=== PATIENT | female | born 1975 | race Caucasian/White ===

== ENCOUNTER 2019-06-22 15:09 | Outpatient (CLI) | payer OTHER, SELFPAY ==
--- NOTE | ~2019-06-22 | XR_ITS ---
EXAMINATION: XR lumbar spine 2-3V EXAM DATE: 06/22/2019 15:36 INDICATION: No known recent injury provided at this time. Pain of the low back. Radiculopathy. TECHNIQUE: Lumber spine frontal, lateral, lateral L5-S1 projections for interpretation. There is no prior study for comparison. FINDINGS: The vertebral bodies are aligned in the AP dimension. Vertebral body and disc heights are well-maintained. No spondylolysis. Mild lower lumbar facet arthropathy. Paraspinal soft tissue is un remarkable. IMPRESSION: Mild lumbar facet arthropathy. Reviewed, dictated and finalized at location B. ENER PERFUMER
--- NOTE | ~2019-06-22 | XR_ITS ---
EXAMINATION: XR shoulder RT min 2V EXAM DATE: 06/22/2019 15:36 INDICATION: No known recent injury provided at this time. Pain of the right shoulder TECHNIQUE: The following right shoulder projections obtained: frontal projection with internal rotati on, frontal projection with external rotation, Grashey, and scapular Y view (4+ views). There is no prior study for comparison. FINDINGS: No evidence of right shoulder rotator cuff calcific tendinosis. Unremarkable right tan ohumeral and acromioclavicular joints. There are no acute fractures or dislocations identified. Ther e is no subcutaneous gas. The soft tissue is unremarkable. There are no radiopaque foreign bodies. IMPRESSION: 1. Unremarkable XR shoulder RT min 2V exam. Reviewed, dictated and finalized at location B. S INTERPRETER
== END 2019-06-22 15:10 | disposition home or self-care (01) ==
LOC: ANHIMG 15:14
PROVIDERS: PCP Physician Assistant; Visit Provider Nurse Practitioner Adult Health
DX: M25.511 Pain in right shoulder (principal); M47.26 Other spondylosis with radiculopathy, lumbar region
CPT/HCPCS: 72100; 73030

== ENCOUNTER 2019-08-13 18:10 | Emergency (ER) | payer OTHER, SELFPAY ==
--- NOTE | ~2019-08-13 | XR_ITS ---
EXAMINATION: XR chest 2V 08/13/2019 18:40 INDICATION: Sudden onset of right upper chest pain PROCEDURE: 2 view chest COMPARISON: 08/20/2018 FINDINGS: The lungs are clear. The cardiomediastinal silhouette is within normal limits. There are no pleural effusions. There is no pneumothorax suspected. IMPRESSION: 1: NO ACUTE CARDIOPULMONARY DISEASE. Reviewed, dictated and finalized at location A.
[2019-08-13 18:10] VITALS: BP 133/82; PULSE 92; RESP 24; TEMP 36.6; O2SAT 98
[2019-08-13 18:15] VITALS: PULSE 75
--- NOTE | 2019-08-13 18:20 | ED.CHESTPAIN ---
HPI - Chest Pain General Chief Complaint: Chest Pain Stated Complaint: chest pain Time Seen by Provider: 08/13/19 18:20 Source: patient Mode of arrival: ambulatory Limitations: no limitations History of Present Illness HPI narrative: 44-year-old woman comes in today complaining of right-sided chest pain which is worse with movement and taking a deep breath. Patient states that started on her waking this morning. She denies any recent falls or injuries. She has never had chest pain like this before. She denies fever, nausea, vomiting, cough, sputum production, cold symptoms, abdominal pain, dysuria or vomiting. MD complaint: chest pain Onset (ago): hour(s) (-12) Timing of current episode: episodic and still present Prior episodes: No Onset: during rest Pain location: right chest ( Anterior) Pain radiation: none Severity: severe Quality: sharp Relieving factors: nothing Exacerbating factors: inspiration, palpation and movement Treatment prior to arrival: none Risk Factors Coronary artery disease risk factors: smoking history and hyperlipidemia Related Data Home Medications Medication Instructions Recorded Confirmed pravastatin 20 mg PO DAILY 08/13/19 08/13/19 pregabalin 150 mg PO DAILY 08/13/19 08/13/19 trazodone 50 mg PO HS 08/13/19 08/13/19 Allergies Allergy/AdvReac Type Severity Reaction Status Date / Time morphine Allergy Unknown Verified 01/22/10 12:39 Penicillins Allergy Unknown Verified 08/20/18 12:17 tramadol Allergy Unknown Verified 08/20/18 12:17 Review of Systems Constitutional: Constitutional: Denies chills, Denies fatigue, Denies fever(s) and Denies weakness Eyes: Eyes: Denies change in vision and Denies photophobia ENT: Denies dysphagia, Denies nasal congestion and Denies sore throat Cardiovascular: Cardiovascular: Reports chest pain, Denies rapid heart rate and Denies radiating jaw, neck or arm pain Respiratory: Respiratory: Denies chest congestion, Denies cough, Denies dyspnea and Denies wheezing Gastrointestinal: Gastrointestinal: Denies abdominal pain, Denies diarrhea, Denies nausea and Denies vomiting Genitourinary: Genitourinary: Denies nocturia and Denies dysuria Musculoskeletal: Musculoskeletal: Denies back pain and Denies joint swelling Integumentary/Breasts: Skin/Breast: Denies pruritus, Denies erythema and Denies rash Neurologic: Denies vertigo, Denies syncope and Denies focal weakness Psychiatric: Psychiatric: Denies anxiety and Denies depression Endocrine: Endocrine: Denies excessive sweating and Denies polyuria Hematologic/Lymphatic: Hematologic/Lymphatic: Denies easy bleeding and Denies easy bruising Allergic/Immunologic: Allergic/Immunologic: Denies throat swelling, Denies tongue swelling and Denies wheezing PMFSH Past Medical History Medical History (Updated 08/13/19 @ 19:36 by Jasper Monsivais MD) Depression Dyslipidemia Surgical History Surgical History (Updated 08/13/19 @ 18:32 by Jasper Monsivais MD) H/O partial thyroidectomy H/O: hysterectomy History of ankle surgery Family History Family History (Updated 01/03/14 @ 07:13 by DOCTOR UNKNOWN) Mother Family history of thyroid disease Other Cerebrovascular accident Diabetes mellitus Family history of allergic disorder Family history of arthritis Family history of malignant neoplasm Family history of mental disorder Hypertension Social History Social History (Updated 08/13/19 @ 18:31 by Jasper Monsivais MD) Smoking status: Current every day smoker Alcohol intake: never Substance use: never Living arrangements: with family Exam Const: General: healthy appearing and alert Orientation/consciousness: patient oriented x3 Other: moderate acute distress. HENMT: Head: normal to inspection Ears: external ears normal, EAC's normal and TM abnormal Mouth: Yes Normal oral and palatal mucosa present and Yes moist mucous membranes Throat: uvula midline Eyes: Con
--- NOTE | 2019-08-13 18:25 | ECG_ITS ---
Measurements Intervals [place] Rate: 76 P: 70 TN: 138 QRS: 83 QRSD: 91 T: 38 QT: 396 QTc: 448 Interpretive Statements SINUS RHYTHM BASELINE ARTIFACT- II, III, AVR, AVL, AVF NORMAL ECG Electronically Signed On 08-13-2019 19:15:12 CDT by Lorenzo Major D.O.
--- NOTE | 2019-08-13 18:30 | PC.NURSE ---
PT TAKEN TO RADIOLOGY DEPARTMENT BY WHEELCHAIR AT THIS TIME
[2019-08-13 18:46] LABS: Basophils Absolute Auto 0.05 K/mm3 (0.00-0.10); Basophils Percent Auto 0.5 % (0.0-1.0); Eosinophils Absolute Auto 0.09 K/mm3 (0.02-0.50); Eosinophils Percent Auto 0.8 % (1.0-6.0); Hematocrit 37.7 % (35.0-49.0); Hemoglobin 12.5 g/dL (12.0-15.0); Immature Granulocyte Absolute 0.03 K/mm3 (0.00-0.00); Immature Granulocyte Percent A 0.3 % (0.0-0.0); Lymphocytes Absolute Auto 4.39 K/mm3 (1.10-4.50); Lymphocytes Percent Auto 39.6 % (18.0-42.0); Mean Corpuscular HGB Conc 33.2 g/dL (32.0-36.0); Mean Corpuscular Hemoglobin 29.2 pg (27.0-31.0); Mean Corpuscular Volume 88.1 fL (78.0-102.0); Mean Platelet Volume 9.7 fl (9.2-11.8); Monocytes Absolute Auto 0.76 K/mm3 (0.10-0.90); Monocytes Percent Auto 6.9 % (2.0-11.0); Neutrophils Absolute Auto 5.8 K/mm3 (1.7-7.2); Neutrophils Percent Auto 51.9 % (50.0-70.0); Platelet Count Result 391 K/mm3 (150-420); Red Blood Count 4.28 M/mm3 (4.20-5.40); Red Cell Distribution Width 13.1 % (11.6-14.4); White Blood Count 11.1 K/mm3 (4.8-10.8)
[2019-08-13 18:54] LABS: Add Urine Microscopic? YES; Appearance Urine Clear (Clear); Bilirubin Urine Negative (Negative); Blood Urine Negative (Negative); Color Urine Yellow (Yellow); Glucose Urine UA Negative (Negative); Ketones Urine Trace (Negative); Leukocyte Esterase Ur Negative LEU/UL (Negative); Nitrate Urine Negative (Negative); Protein Urine Negative (Negative)
[2019-08-13 19:00] LABS: Bacteria Urine 1+ /hpf; Mucus Urine Few /lpf; RBC Urine 0-2 /hpf (0-2); Squamous Epithelial Cell Urine Moderate /hpf (Few); WBC Urine 0-3 /hpf (0-3)
[2019-08-13 19:02] LABS: D Dimer 0.19 mg/L (0.19-0.50); Partial Thromboplastin Time 23.2 SEC (22.3-31.6); Prothrombin Time 10.2 Seconds (9.64-11.0)
[2019-08-13 19:03] LABS: Alanine Aminotransferase 32 U/L (14-59); Albumin Level 3.7 g/dL (3.4-5.0); Alkaline Phosphatase 63 U/L (46-116); Anion Gap 11.4 mmol/L (7-16); Aspartate Amino Transferase 26 U/L (15-37); Bilirubin,Total 0.1 mg/dL (0.00-1.00); Blood Urea Nitrogen 11 mg/dL (7-18); Calcium 8.9 mg/dL (8.5-10.1); Carbon Dioxide 28 mmol/L (21-32); Chloride 102 mmol/L (98-108); Estimated CRCL calculation 43 ml/min; Estimated Glomerular Filt Rate 47; Glucose 91 mg/dL (70-99); Osmolality Calculated 285 mOsm/kg (285-295); Potassium 3.4 mmol/L (3.5-5.1); Sodium 138 mmol/L (136-145)
[2019-08-13 19:04] LABS: Troponin I < 0.02 ng/mL (0.00-0.056)
[2019-08-13 19:05] LABS: Lipase 52 U/L (73-393)
--- NOTE | 2019-08-13 19:12 | PC.NURSE ---
PT IS REFUSING IV ACCESS. EDUCATION PROVIDED. ERP INFORMED.
[2019-08-13 19:34] VITALS: BP 115/66; PULSE 77; RESP 15; O2SAT 100
== END 2019-08-13 19:45 | disposition home or self-care (01) ==
PROVIDERS: Emergency Provider Emergency Medicine
DX: R07.1 Chest pain on breathing (principal)
CPT/HCPCS: 36415; 71046; 80053; 81001; 83690; 84484; 85025; 85380; 85610; 85730; 93005; 99284; A9270

== ENCOUNTER 2019-08-17 09:34 | Outpatient (CLI) | payer OTHER, SELFPAY ==
--- NOTE | ~2019-08-17 | US_ITS ---
EXAMINATION: US right upper quadrant DATE: 08/17/2019 11:10 INDICATION: Chest pain. TECHNIQUE: Multiple grayscale and Doppler ultrasound images of the abdomen were obtained. COMPARISON: CT abdomen and pelvis 06/21/2016 FINDINGS: The visualized portions of the head, body, and tail of the pancreas are normal. The liver i s normal without focal lesion. There is normal flow in left portal vein. The gallbladder is normal in size and contains a gallstone. No gallbladder wall thickening or sonographic [place] sign. The common duct is normal and measures 3 mm. IMPRESSION: 1. Cholelithiasis. No evidence of acute cholecystitis. Reviewed, dictated and finalized at location A.
== END 2019-08-17 09:35 | disposition home or self-care (01) ==
LOC: CHSIMG 09:37
PROVIDERS: PCP Physician Assistant; Visit Provider Emergency Medicine
DX: R07.9 Chest pain, unspecified (principal)
CPT/HCPCS: 76705

== ENCOUNTER 2019-08-24 21:27 | Emergency (ER) | payer OTHER, SELFPAY ==
--- NOTE | ~2019-08-24 | CT_ITS ---
EXAMINATION: CT abdomen pelvis w con INDICATION: Right upper quadrant pain TECHNIQUE: Computed tomographic images of the abdomen and pelvis were obtained after the administrati on of 100 cc of Omnipaque 350 intravenous contrast. The dose-length product (DLP) was 424.57 mGy-cm. Automated exposure control and iterative reconstruction technique were employed. COMPARISON: 06/21/2016 FINDINGS: The lung bases are clear. The heart size is normal. There is focal fatty infiltration of th e liver adjacent to the ligamentum teres. Cholelithiasis is noted. No pericholecystic inflammatory ch colin is identified. The spleen, pancreas, and adrenal glands are normal. There is mild lumbar spondyl osis. No pathologically enlarged abdominal or pelvic lymph nodes are identified. There is no free i ntraperitoneal gas or evidence of bowel obstruction. The appendix is normal. IMPRESSION: 1. Cholelithiasis without additional findings of cholecystitis. Reviewed, dictated and finalized at location A.
[2019-08-24 21:49] VITALS: BP 118/78; PULSE 90; RESP 16; TEMP 36.8; O2SAT 99
--- NOTE | 2019-08-24 21:51 | ED.ABDPAIN ---
HPI - Abdominal Pain General Chief Complaint: Abdominal Pain Stated Complaint: GALLBLADDER PAIN Time Seen by Provider: 08/24/19 21:51 Source: patient Mode of arrival: ambulatory Limitations: no limitations History of Present Illness HPI narrative: 44-year-old woman comes in today complaining of right lower chest and right upper abdomen pain which has been present for over 10 days. She states her pain is worse after eating a cheeseburger. During the visit to the ER on August 12 her workup was unremarkable and she refused IV for a CT scan. An outpatient ultrasound of the right upper quadrant showed no abnormalities save for a single gallstone. Patient is here tonight stating that her pain persists. She denies fever and vomiting but states that after eating she has nausea and diarrhea. She saw her PCP earlier today who, she said, was trying to arrange for surgical evaluation. MD elicited complaint: abdominal pain Onset (ago): day(s) (10+) Pain Consistency: constant and colicky Location: RUQ Severity: moderate Quality: cramping and sharp Radiation: none Exacerbating factors: eating Relieving factors: nothing Associated symptoms: nausea and diarrhea Related Data Home Medications Medication Instructions Recorded Confirmed pravastatin 20 mg PO DAILY 08/13/19 08/24/19 pregabalin 150 mg PO DAILY 08/13/19 08/24/19 trazodone 50 mg PO HS 08/13/19 08/24/19 Allergies Allergy/AdvReac Type Severity Reaction Status Date / Time morphine Allergy Unknown Verified 01/22/10 12:39 Penicillins Allergy Unknown Verified 08/20/18 12:17 tramadol Allergy Unknown Verified 08/20/18 12:17 Review of Systems Constitutional: Constitutional: Denies chills, Denies fever(s) and Denies weakness Eyes: Eyes: Denies change in vision and Denies photophobia ENT: Denies dysphagia, Denies nasal congestion and Denies sore throat Cardiovascular: Cardiovascular: Denies chest pain and Denies radiating jaw, neck or arm pain Respiratory: Respiratory: Denies cough, Denies dyspnea and Denies wheezing Gastrointestinal: Gastrointestinal: Reports abdominal pain, Reports diarrhea, Reports nausea and Denies vomiting Genitourinary: Genitourinary: Denies hematuria, Denies nocturia and Denies dysuria Musculoskeletal: Musculoskeletal: Denies arthralgias and Denies joint swelling Integumentary/Breasts: Skin/Breast: Denies pruritus, Denies erythema and Denies rash Neurologic: Denies vertigo, Denies dizziness and Denies syncope Hematologic/Lymphatic: Hematologic/Lymphatic: Denies easy bleeding and Denies easy bruising Allergic/Immunologic: Allergic/Immunologic: Denies lip swelling and Denies wheezing PMFSH Past Medical History Medical History Depression Dyslipidemia Surgical History Surgical History H/O partial thyroidectomy H/O: hysterectomy History of ankle surgery Family History Family History (Updated 01/03/14 @ 07:13 by DOCTOR UNKNOWN) Mother Family history of thyroid disease Other Cerebrovascular accident Diabetes mellitus Family history of allergic disorder Family history of arthritis Family history of malignant neoplasm Family history of mental disorder Hypertension Social History Social History Smoking status: Current every day smoker Alcohol intake: never Substance use: never Exam Const: General: healthy appearing and alert Orientation/consciousness: patient oriented x3 Other: [id number] acute distress. HENMT: Mouth: Yes Normal oral and palatal mucosa present and Yes moist mucous membranes Throat: posterior oropharynx normal Eyes: Conjunctivae: conjunctivae normal EOM: EOMs intact bilaterally Resp: Effort & Inspection: normal respiratory effort and not labored Auscultation: clear to auscultation bilaterally, no rales, no rhonchi and n
[2019-08-24 22:19] LABS: Basophils Absolute Auto 0.06 K/mm3 (0.00-0.10); Basophils Percent Auto 0.5 % (0.0-1.0); Eosinophils Absolute Auto 0.12 K/mm3 (0.02-0.50); Hematocrit 38.9 % (35.0-49.0); Hemoglobin 12.9 g/dL (12.0-15.0); Immature Granulocyte Absolute 0.03 K/mm3 (0.00-0.00); Immature Granulocyte Percent A 0.3 % (0.0-0.0); Lymphocytes Percent Auto 40.8 % (18.0-42.0); Mean Corpuscular HGB Conc 33.2 g/dL (32.0-36.0); Mean Corpuscular Hemoglobin 29.6 pg (27.0-31.0); Mean Corpuscular Volume 89.2 fL (78.0-102.0); Mean Platelet Volume 9.5 fl (9.2-11.8); Monocytes Absolute Auto 0.67 K/mm3 (0.10-0.90); Monocytes Percent Auto 5.8 % (2.0-11.0); Neutrophils Absolute Auto 5.9 K/mm3 (1.7-7.2); Neutrophils Percent Auto 51.6 % (50.0-70.0); Platelet Count Result 375 K/mm3 (150-420); Red Blood Count 4.36 M/mm3 (4.20-5.40); Red Cell Distribution Width 13.2 % (11.6-14.4); White Blood Count 11.5 K/mm3 (4.8-10.8)
[2019-08-24] MEDS: KETOROLAC 30 MG/ML VIAL (*BKC) IV PUSH (22:21)
[2019-08-24] MEDS: ONDANSETRON INJ 4 MG/2 ML VIAL IV PUSH (22:22)
[2019-08-24 22:33] LABS: Alanine Aminotransferase 21 U/L (14-59); Alkaline Phosphatase 73 U/L (46-116); Anion Gap 13.8 mmol/L (7-16); Aspartate Amino Transferase 17 U/L (15-37); Blood Urea Nitrogen 17 mg/dL (7-18); Calcium 8.8 mg/dL (8.5-10.1); Carbon Dioxide 28 mmol/L (21-32); Chloride 100 mmol/L (98-108); Estimated CRCL calculation 62 ml/min; Estimated Glomerular Filt Rate > 60; Glucose 90 mg/dL (70-99); Lipase 102 U/L (73-393); Osmolality Calculated 287 mOsm/kg (285-295); Potassium 3.8 mmol/L (3.5-5.1); Sodium 138 mmol/L (136-145); Total Protein 7.5 g/dL (6.4-8.2)
[2019-08-24 22:46] LABS: Bilirubin,Total < 0.1 mg/dL (0.00-1.00)
--- NOTE | 2019-08-24 22:58 | PC.NURSE ---
Report received, pt. resting and awaiting CT scan.
[2019-08-24 23:34] VITALS: BP 92/62; PULSE 85; RESP 18; TEMP 36.8; O2SAT 98
== END 2019-08-24 23:44 | disposition home or self-care (01) ==
PROVIDERS: Emergency Provider Emergency Medicine; PCP Physician Assistant
DX: R10.11 Right upper quadrant pain (principal)
CPT/HCPCS: 36415; 74177; 80053; 83690; 85025; 96374; 96375; 99283; 99284; J1885; J2405; Q9965

== ENCOUNTER 2019-09-14 08:18 | Outpatient (CLI) | payer OTHER, SELFPAY ==
[2019-09-14 08:56] LABS: Alanine Aminotransferase 15 U/L (4-35); Albumin Level 4.4 g/dL (3.5-5.1); Alkaline Phosphatase 66 U/L (38-126); Amylase 57 U/L (30-110); Aspartate Amino Transferase 27 U/L (14-36); Bilirubin,Total 0.2 mg/dL (0.2-1.3); Lipase 74 U/L (23-300)
== END 2019-09-14 08:19 | disposition home or self-care (01) ==
PROVIDERS: PCP Physician Assistant; Visit Provider Surgery
DX: K80.10 Calculus of gallbladder with chronic cholecystitis without obstruction (principal)
CPT/HCPCS: 36415; 80076; 82150; 83690

== ENCOUNTER 2019-09-14 09:12 | Outpatient (CLI) | payer OTHER, SELFPAY ==
[2019-09-14 16:20] LABS: SARS-CoV-2 RNA PCR Negative
== END 2019-09-14 09:13 | disposition home or self-care (01) ==
LOC: ANHCOVIDDT 09:12
PROVIDERS: PCP Physician Assistant; Visit Provider Surgery
DX: Z01.818 Encounter for other preprocedural examination (principal); Z11.59 Encounter for screening for other viral diseases
CPT/HCPCS: 36415; 80076; 82150; 83690; 87635; U0003

== ENCOUNTER 2019-09-17 00:06 | Day surgery (SDC) | payer OTHER, SELFPAY ==
[2019-09-11 14:55] VITALS: BMI 23.3
[2019-09-17] VITALS (8 sets, daily range): BP systolic 95–119; BP diastolic 61–73; PULSE 48–80; RESP 14–16; TEMP 36.1–36.9; O2SAT 94–100
[2019-09-17] MEDS: LACTATED RINGERS 1,000 ML 30 ML IV CONT ×2 (06:35→09:01)
--- NOTE | 2019-09-17 06:53 | WPDANESEPPF ---
Anes - Initial Pre Proc Eval Procedure: Operation Date: 09/17/19 07:30 Proposed Procedures p Laparoscopic Cholecystectomy With Intraoperative Cholangiography, Possible Open - Leno Villafuerte MD Date/Time: 09/17/19 06:53 Surgeon: Leno Villafuerte MD Pre Op Diagnosis: Chronic Cystitis w/ Cholelithiasis Patient Data Age: 44 Gender: F Height: 5 ft 5 in Weight: 66 kg Last Vital Signs Temp 36.9 C 09/17/19 06:35 Pulse 57 L 09/17/19 06:35 Resp 16 09/17/19 06:35 BP 102/71 09/17/19 06:35 Pulse Ox 99 09/17/19 06:35 Allergies Allergy/AdvReac Type Severity Reaction Status Date / Time morphine Allergy Severe Vomiting Verified 09/17/19 06:20 Penicillins Allergy Severe Hives Verified 09/17/19 06:20 tramadol Allergy Severe Seizure Verified 09/17/19 06:20 Home Medications Medication Instructions Recorded Confirmed Type trazodone 50 mg PO HS 08/13/19 09/17/19 History pregabalin 100 mg capsule 100 mg PO BID 09/07/19 09/17/19 History Patient hx anesthesia problems: post op nausea/vomiting Family hx anesthesia problems: none PMFSH Past Medical History Medical History Depression Dyslipidemia GERD (gastroesophageal reflux disease) High cholesterol History of thyroid disease Surgical History Surgical History H/O partial thyroidectomy H/O: hysterectomy History of ankle surgery History of x2 Family History Family History Mother Family history of thyroid disease Other Cerebrovascular accident Diabetes mellitus Family history of allergic disorder Family history of arthritis Family history of malignant neoplasm Family history of mental disorder Hypertension Social History Social History Smoking status: Current every day smoker Alcohol intake: never Substance use: never 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 Questions were solicited and answers provided to the satisfaction of the patient/family/POA.
[2019-09-17] MEDS: FAMOTIDINE 20 MG/2 ML VIAL IV PUSH (07:00)
[2019-09-17] MEDS: SCOPOLAMINE 1.5 MG PATCH TRANSDERM (07:02)
--- NOTE | 2019-09-17 07:24 | SUR.PREOP ---
Assisted up to bathroom.
--- NOTE | 2019-09-17 07:34 | WPDHPUPDATE1 ---
History and Physical Update Update Date/Time: 09/17/19 07:34 History and Physical has been reviewed, including an updated exam of the patient. There are NO changes in the patient's condition. Risks, benefits, and alternatives have been discussed and questions answered. Patient agrees to proceed with procedure.
[2019-09-17] MEDS: CLINDAMYCIN 900 MG/NS 50 ML 900 MG/50 ML PIGGYBACK 50 MG IVPB (07:42)
[2019-09-17] MEDS: BUPIVACAINE/EPINEPHRINE 0.5% 30 ML VIAL INFILTRATE (08:21)
--- NOTE | 2019-09-17 08:34 | SUR.OPER ---
EBL:[id number]
--- NOTE | 2019-09-17 08:56 | PM.PROC ---
Procedure Note - Detailed Date of procedure: 09/17/19 Pre-op diagnosis: Chronic Cystitis w/ Cholelithiasis Post-op diagnosis: other (and small umbilical hernia) Procedure performed: Laparoscopic cholecystectomy with intraoperative cholangiogram. 2. repair of small umbilical hernia Description of procedure: Procedure Details: Patient was seen preoperatively in the holding area and risks, benefits and alternatives confirmed. Patient was taken to the operating room and general anesthesia was induced. A time out was then preformed with the surgery team confirming patient and site of surgery. The abdomen was prepped and draped in the usual sterile fashion. Incision was made just below the umbilicus. As we did this a small yellow piece of fat showed up and this ended up being some omentum coming through a very small opening that was an umbilical hernia. We carefully dissected this all the way remove the sac and then I made that opening slightly larger in a vertical manner after applying the 2 stay sutures. Two stay sutures of O- Vicryl were used to elevate the mid-line fascia beneath the umbilicus and a small incision was made under direct vision. The peritoneum was entered. The 12 mm Turpin cannula was introduced under direct vision. First under low flow and then under high flow the abdomen was insufflated with carbon dioxide never exceeding a pressure of 14. Three 5 mm trocars were then introduced under direct vision. The following trocars were introduced under direct vision: a 5 mm in the epigastrium and two 5 mm trocars along the right costal margin. There were few filmy adhesions covering the triangle of colo area. These were taken down with blunt sharp dissection. I then carefully dissected until we had 2 structures the cystic duct and the cystic artery and a window of safety prior to clipping any structures. The gall bladder was grasped and the cystic duct and artery were dissected free and clipped with an 5 mm endo-clip senior bi architect. Two clips were paced placed on the patient's side 1 on the gallbladder side. The cystic duct was then transected. The cystic artery was also transected at this point. The gall bladder was removed using electrocautery and then removed using a large 10 mm grasper via the umbilical incision. The trocars were removed visualizing hemostasis and the remaining gas evacuated. The large trocar site at the umbilicus was closed with an 0 vicryl figure of 8 suture. This was used to close the small umbilical hernia that was encountered upon entering the abdomen. The 2 stay sutures mentioned above on either side of the fascia were also tied together to help approximate this midline fascia. Further local anesthetic was placed into each incision for postop pain control. The skin incisions were closed with a subcuticular of 4-0 Monocryl. Surgical glue then was applied to all the incisions. Patient tolerated the procedure well was taken to the recovery room in good condition. Anesthesia: GETA Surgeon: Leno Villafuerte MD Pathology: yes (The gallbladder) Complications: No immediate complications Condition: stable Disposition: PACU
[2019-09-17] MEDS: ONDANSETRON INJ 4 MG/2 ML VIAL IV PUSH (09:28)
== END 2019-09-17 10:52 | disposition home or self-care (01) ==
PROVIDERS: PCP Physician Assistant; Visit Provider Surgery
PROC: 0FT44ZZ Resection of Gallbladder, Percutaneous Endoscopic Approach (ICD-10-PCS; CPT 47562; principal; 2019-09-17 07:30)
DX: K80.10 Calculus of gallbladder with chronic cholecystitis without obstruction (principal); K42.9 Umbilical hernia without obstruction or gangrene; E78.5 Hyperlipidemia, unspecified; K21.9 Gastro-esophageal reflux disease without esophagitis; F32.9 Major depressive disorder, single episode, unspecified; Z72.0 Tobacco use
CPT/HCPCS: 47562; 88300; 88304; A9270; J0131; J1100; J2001; J2250; J2405; J2704; J2710; J3010; J7120

== ENCOUNTER 2020-04-04 18:16 | Emergency (ER) | payer OTHER, SELFPAY ==
--- NOTE | 2020-04-04 18:36 | ECG_ITS ---
Measurements Intervals [place] Rate: 99 P: 82 [place]: 138 QRS: 91 QRSD: 92 T: 39 QT: 370 QTc: 476 Interpretive Statements SINUS RHYTHM POSSIBLE RIGHT ATRIAL ENLARGEMENT POSSIBLE LEFT ATRIAL ENLARGEMENT RIGHT AXIS DEVIATION NONSPECIFIC ST & T-WAVE ABNORMALITY- ANTEROLAT/INF LEADS BASELINE ARTIFACT- I, II, III, AVR, AVL, AVF, V1-V2, V4 BORDERLINE ECG Electronically Signed On 04-04-2020 20:05:33 SOLE DYER by Lorenzo Major D.O.
[2020-04-04 18:39] VITALS: BP 108/62; PULSE 102; RESP 18; TEMP 36.7; O2SAT 98
[2020-04-04 19:01] LABS: Basophils Absolute Auto 0.03 K/mm3 (0.00-0.10); Basophils Percent Auto 0.2 % (0.0-1.0); Eosinophils Absolute Auto 0.07 K/mm3 (0.02-0.50); Eosinophils Percent Auto 0.6 % (1.0-6.0); Hematocrit 35.8 % (35.0-49.0); Hemoglobin 11.7 g/dL (12.0-15.0); Immature Granulocyte Absolute 0.02 K/mm3 (0.00-0.00); Immature Granulocyte Percent A 0.2 % (0.0-0.0); Lymphocytes Absolute Auto 3.95 K/mm3 (1.10-4.50); Lymphocytes Percent Auto 31.8 % (18.0-42.0); Mean Corpuscular HGB Conc 32.7 g/dL (32.0-36.0); Mean Corpuscular Hemoglobin 28.4 pg (27.0-31.0); Mean Corpuscular Volume 86.9 fL (78.0-102.0); Mean Platelet Volume 9.8 fl (9.2-11.8); Monocytes Absolute Auto 1.42 K/mm3 (0.10-0.90); Monocytes Percent Auto 11.4 % (2.0-11.0); Neutrophils Absolute Auto 6.9 K/mm3 (1.7-7.2); Neutrophils Percent Auto 55.8 % (50.0-70.0); Platelet Count Result 380 K/mm3 (150-420); Red Blood Count 4.12 M/mm3 (4.20-5.40); Red Cell Distribution Width 13.5 % (11.6-14.4); White Blood Count 12.4 K/mm3 (4.8-10.8)
[2020-04-04 19:02] LABS: Add Urine Microscopic? YES; Appearance Urine Clear (Clear); Bilirubin Urine Negative (Negative); Blood Urine 1+ (Negative); Color Urine Yellow (Yellow); Glucose Urine UA Negative (Negative); Ketones Urine Negative (Negative); Leukocyte Esterase Ur Negative LEU/UL (Negative); Nitrate Urine Negative (Negative); Protein Urine Negative (Negative); Specific Grav Ur >= 1.030 (1.010-1.020); Urobilinogen Urine 0.2 mg/dL (0.2-1.0); pH Urine 5.5 (5.0-8.0)
[2020-04-04 19:07] LABS: Bacteria Urine Trace /hpf; Mucus Urine Few /lpf; Pregnancy On Board Control Positive; Squamous Epithelial Cell Urine Few /hpf (Few); Urine Pregnancy Test Negative; WBC Urine None seen /hpf (0-3)
[2020-04-04 19:10] LABS: Amphetamine Screen Urine Positive (Negative); Barbiturate Screen Urine Positive (Negative); Benzodiazepines Screen Urine Negative (Negative); Cannabinoid Screen Urine Positive (Negative); Cocaine Screen Urine Negative (Negative); Methadone Screen Urine Negative (Negative); Opiate Screen Urine Positive (Negative); Phencyclidine Screen Urine Negative (Negative)
[2020-04-04 19:21] LABS: Alanine Aminotransferase 26 U/L (14-59); Albumin Level 4.6 g/dL (3.4-5.0); Alkaline Phosphatase 76 U/L (46-116); Anion Gap 9 mmol/L (8-16); Aspartate Amino Transferase 24 U/L (15-37); Bilirubin,Total 0.6 mg/dL (0.00-1.00); Blood Urea Nitrogen 18 mg/dL (7-18); Calcium 9.2 mg/dL (8.5-10.1); Carbon Dioxide 29 mmol/L (21-32); Chloride 99 mmol/L (98-108); Estimated CRCL calculation 66 ml/min; Estimated Glomerular Filt Rate > 60; Glucose 90 mg/dL (70-99); Osmolality Calculated 285 mOsm/kg (285-295); Potassium 3.3 mmol/L (3.5-5.1); Salicylate 4.2 mg/dL (2.8-20.0); Sodium 137 mmol/L (136-145); Thyroid Stimulating Hormone 0.96 uIU/mL (0.36-3.74); Total Protein 8.4 g/dL (6.4-8.2)
[2020-04-04 19:23] LABS: Acetaminophen < 1 ug/mL (10-30); Ethanol < 3 mg/dL (0-6)
--- NOTE | 2020-04-04 19:51 | ED.PSYCH ---
HPI - Psych General Chief Complaint: Psychiatric Symptoms Stated Complaint: mental eval Source: patient Mode of arrival: ambulatory Limitations: altered mental status History of Present Illness HPI Narrative: This is a 45-year-old female presents to the emergency department with a 2 day history of altered mental status with confusion with some history of depression. Currently over the last couple of days has been having psychotic episodes where she feels that she is being poisoned with Visine and insect site. Patient states that she has not been able to sleep for the last couple of days, and that she found empty bottle of Visine and an empty can of insecticide in her home where H she states does not belong to her. Patient also is voicing and that family members had not too far apart from each other and does not think that that is a coincidence. Patient has a history of depression, is currently on trazodone. Patient denies any suicidal or homicidal thoughts or ideations or intent. Currently her vitals are stable with no fevers she does complain of some numerous some symptoms of some itching and things crawling in her ear. complaint: altered mental status Onset (ago): day(s) Duration: constant History of same: Yes Relieving factors: none Exacerbating factors: none Context: recent drug abuse Associated psychiatric symptoms: depression, racing thoughts, visual hallucinations and delusions Associated symptoms: confusion Treatments prior to arrival: none Related Data Home Medications Medication Instructions Recorded Confirmed trazodone 50 mg PO HS 08/13/19 09/17/19 Allergies Allergy/AdvReac Type Severity Reaction Status Date / Time morphine Allergy Severe Vomiting Verified 09/17/19 06:20 Penicillins Allergy Severe Hives Verified 09/17/19 06:20 tramadol Allergy Severe Seizure Verified 09/17/19 06:20 Review of Systems Review of Systems: All systems reviewed & are unremarkable except as noted in HPI and below PMFSH Past Medical History Medical History (Updated 04/04/20 @ 21:10 by Noe Russ MD) Depression Dyslipidemia GERD (gastroesophageal reflux disease) High cholesterol History of thyroid disease Surgical History Surgical History H/O partial thyroidectomy H/O: hysterectomy History of ankle surgery History of x2 Family History Family History Mother Family history of thyroid disease Other Cerebrovascular accident Diabetes mellitus Family history of allergic disorder Family history of arthritis Family history of malignant neoplasm Family history of mental disorder Hypertension Social History Social History Smoking status: Current every day smoker Alcohol intake: never Substance use: never 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 Const: General: no acute distress and confusion Limitations: altered mental status HENMT: Head: normal to inspection Eyes: Conjunctivae: conjunctivae normal Pupils: Equal, round and reactive pupils present EOM: EOMs intact bilaterally Direct Ophthalmoscopy: no photophobia Neck: Neck: normal visual inspection, no lymphadenopathy and no meningeal signs Chest: Chest palpation & inspection: normal inspection of the chest Resp: Effort & Inspection: normal respiratory effort Auscultation: clear to auscultation bilaterally Cardio: Rate: regular rate Rhythm: regular rhythm GI: GI Palp: Yes Soft to palpation Auscultation: normal bowel sounds : General: Yes no CVA tenderness Urinary Catheter: Urinary Catheter: patent and draining Back/Spine/Pelvis: Back: no CVA tenderness Skin: Rashes: no rashes Neuro: General: moves all extremities and no meningeal signs Extrem: General: normal to inspection Psych: Appearance: disheveled Thou
[2020-04-04 21:25] VITALS: BP 149/88; PULSE 108; RESP 18; O2SAT 95
== END 2020-04-04 21:25 | disposition home or self-care (01) ==
PROVIDERS: Emergency Provider Emergency Medicine; PCP Physician Assistant
DX: F23 Brief psychotic disorder (principal); F19.20 Other psychoactive substance dependence, uncomplicated
CPT/HCPCS: 36415; 80053; 80307; 81001; 81025; 84443; 85025; 93005; 99283; 99284

== ENCOUNTER 2020-05-18 22:20 | Emergency (ER) | payer OTHER, SELFPAY ==
--- NOTE | ~2020-05-18 | XR_ITS ---
EXAMINATION: XR chest 2V DATE: 05/18/2020 23:31 INDICATION: Chest pain TECHNIQUE: PA and lateral views of the chest are obtained. COMPARISON: 08/13/2019 FINDINGS: The lungs are free of acute opacities. There is no pleural effusion or pneumothorax. The ca rdiomediastinal silhouette is normal. Surgical clips in the right upper quadrant are likely from prio r cholecystectomy. IMPRESSION: 1. No acute cardiopulmonary abnormality. Reviewed, dictated and finalized at location A. WORKER
[2020-05-18 22:20] VITALS: BP 142/90; PULSE 119; RESP 20; TEMP 36.9; O2SAT 96
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
--- NOTE | 2020-05-18 22:57 | ECG_ITS ---
Measurements Intervals [place] Rate: 108 P: 72 [place]: 153 QRS: 78 QRSD: 90 T: 8 QT: 339 QTc: 455 Interpretive Statements SINUS TACHYCARDIA POSSIBLE RIGHT ATRIAL ENLARGEMENT LEFT ATRIAL ENLARGEMENT DELAYED PRECORDIAL R/S TRANSITION NONSPECIFIC ST & T-WAVE ABNORMALITY- INFERIOR LEADS BASELINE ARTIFACT- I, II, III, AVR, AVL, AVF, V1-V6 ABNORMAL ECG Electronically Signed On 05-19-2020 7:59:54 RADIAL SAW OPERATOR by Lorenzo Major D.O.
--- NOTE | 2020-05-18 23:33 | PC.NURSE ---
pt ambulated to xray with this RN, accompanied throughout xray department along with a male staff member. returned to room. mother in room with pt, pt wanting to go outside to smoke. explained smoking policy for hospital. pt sitting on cot talking with mother.
[2020-05-18 23:35] LABS: Basophils Absolute Auto 0.04 K/mm3 (0.00-0.10); Basophils Percent Auto 0.3 % (0.0-1.0); Eosinophils Absolute Auto 0.01 K/mm3 (0.02-0.50); Eosinophils Percent Auto 0.1 % (1.0-6.0); Hematocrit 35.3 % (35.0-49.0); Hemoglobin 11.8 g/dL (12.0-15.0); Immature Granulocyte Absolute 0.03 K/mm3 (0.00-0.00); Immature Granulocyte Percent A 0.2 % (0.0-0.0); Lymphocytes Absolute Auto 2.08 K/mm3 (1.10-4.50); Lymphocytes Percent Auto 17.3 % (18.0-42.0); Mean Corpuscular HGB Conc 33.4 g/dL (32.0-36.0); Mean Corpuscular Hemoglobin 28.7 pg (27.0-31.0); Mean Corpuscular Volume 85.9 fL (78.0-102.0); Monocytes Absolute Auto 0.96 K/mm3 (0.10-0.90); Neutrophils Absolute Auto 8.9 K/mm3 (1.7-7.2); Neutrophils Percent Auto 74.1 % (50.0-70.0); Platelet Count Result 360 K/mm3 (150-420); Red Blood Count 4.11 M/mm3 (4.20-5.40); Red Cell Distribution Width 12.8 % (11.6-14.4)
[2020-05-18 23:49] LABS: Add Urine Microscopic? YES; Appearance Urine Clear (Clear); Bilirubin Urine Negative (Negative); Blood Urine 1+ (Negative); Color Urine Yellow (Yellow); Glucose Urine UA Negative (Negative); Ketones Urine 1+ (Negative); Leukocyte Esterase Ur Trace LEU/UL (Negative); Nitrate Urine Negative (Negative); Protein Urine Negative (Negative); Specific Grav Ur >= 1.030 (1.010-1.020); Urobilinogen Urine 0.2 mg/dL (0.2-1.0); pH Urine 5.5 (5.0-8.0)
[2020-05-18 23:50] LABS: Amphetamine Screen Urine Positive (Negative); Barbiturate Screen Urine Positive (Negative); Benzodiazepines Screen Urine Negative (Negative); Cannabinoid Screen Urine Positive (Negative); Cocaine Screen Urine Negative (Negative); Methadone Screen Urine Negative (Negative); Opiate Screen Urine Negative (Negative); Phencyclidine Screen Urine Negative (Negative)
[2020-05-18 23:59] LABS: Squamous Epithelial Cell Urine Moderate /hpf (Few)
[2020-05-19] LABS: Bacteria Urine 3+ /hpf
[2020-05-19 00:04] LABS: Alanine Aminotransferase 20 U/L (14-59); Albumin Level 4.6 g/dL (3.4-5.0); Alkaline Phosphatase 77 U/L (46-116); Anion Gap 13 mmol/L (8-16); Aspartate Amino Transferase 21 U/L (15-37); Bilirubin,Total 0.5 mg/dL (0.00-1.00); Blood Urea Nitrogen 15 mg/dL (7-18); Calcium 9.2 mg/dL (8.5-10.1); Carbon Dioxide 24 mmol/L (21-32); Chloride 98 mmol/L (98-108); Estimated CRCL calculation 62 ml/min; Estimated Glomerular Filt Rate > 60; Glucose 110 mg/dL (70-99); Osmolality Calculated 281 mOsm/kg (285-295); Potassium 3.3 mmol/L (3.5-5.1); Salicylate 6.4 mg/dL (2.8-20.0); Sodium 135 mmol/L (136-145); Thyroid Stimulating Hormone 0.39 uIU/mL (0.36-3.74); Total Protein 8.1 g/dL (6.4-8.2)
--- NOTE | 2020-05-19 00:05 | PC.NURSE ---
pt sitting on bed on cell phone and talking with mother
[2020-05-19 00:08] LABS: Acetaminophen < 2 ug/mL (10-30)
[2020-05-19 00:09] LABS: Ethanol < 3 mg/dL (0-6)
--- NOTE | 2020-05-19 00:14 | PC.NURSE ---
pr requesting to leave with mother. continues to deny suicidal ideation /homicidal ideation. information packet for safe families from [facility] and [facility] hotline flyer given to patient. printed /highlighted information given to pt and pt mother regarding shelters.
== END 2020-05-19 00:24 | disposition home or self-care (01) ==
PROVIDERS: Emergency Provider Emergency Medicine
DX: F41.9 Anxiety disorder, unspecified (principal); T50.905A Adverse effect of unspecified drugs, medicaments and biological substances, initial encounter
CPT/HCPCS: 36415; 71046; 80053; 80307; 81001; 84443; 85025; 93005; 99283; 99284

== ENCOUNTER 2021-08-27 21:58 | Emergency (ER) | payer OTHER, SELFPAY ==
--- NOTE | 2021-08-27 22:00 | ECG_ITS ---
Measurements Intervals [place] Rate: 68 P: 79 NM: 148 QRS: 89 QRSD: 94 T: 58 QT: 423 QTc: 451 Interpretive Statements SINUS RHYTHM NONSPECIFIC ST SEGMENT CHANGES COMPARED TO ECG 05/18/2020 23:17:46 NO CHANGES NOTED Electronically Signed On 08-28-2021 15:32:47 CDT by Noe Millard M.D.
[2021-08-27 22:11] VITALS: PULSE 84; RESP 15; O2SAT 97
[2021-08-27 22:12] VITALS: BP 100/67; PULSE 70; RESP 20; TEMP 36.8; O2SAT 97
--- NOTE | 2021-08-27 22:18 | ED.GENADULT ---
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 There is no shortness of breath no fever chills no cough or congestion no nausea vomiting no abdominal pain. Onset (ago): day(s) Location: upper extremity Radiation: neck and extremity Severity: moderate Severity scale (1-10): 7 Quality: aching Pain Consistency: constant ( reproducible) Related Data Home Medications Medication Instructions Recorded Confirmed naproxen 500 mg PO DAILY 08/27/21 08/27/21 trazodone 50 mg PO DAILY 08/27/21 08/27/21 Allergies Allergy/AdvReac Type Severity Reaction Status Date / Time morphine Allergy Severe Vomiting Verified 08/27/21 22:16 Penicillins Allergy Severe Hives Verified 08/27/21 22:16 tramadol Allergy Severe Seizure Verified 08/27/21 22:16 Review of Systems Review of Systems: All systems reviewed & are unremarkable except as noted in HPI and below PMFSH Past Medical History Medical History (Updated 08/27/21 @ 22:21 by Noe Russ MD) Depression Dyslipidemia GERD (gastroesophageal reflux disease) High cholesterol History of thyroid disease Surgical History Surgical History H/O partial thyroidectomy H/O: hysterectomy History of ankle surgery History of x2 Family History Family History Mother Family history of thyroid disease Other Cerebrovascular accident Diabetes mellitus Family history of allergic disorder Family history of arthritis Family history of malignant neoplasm Family history of mental disorder Hypertension Social History Social History Smoking status: Current every day smoker Alcohol intake: never Substance use: never 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 Exam Const: General: no acute distress Orientation/consciousness: patient oriented x3 HENMT: Head: normal to inspection Eyes: Conjunctivae: conjunctivae normal Pupils: Equal, round and reactive pupils present Neck: Neck: normal visual inspection, no lymphadenopathy and no meningeal signs Chest: Chest palpation & inspection: normal inspection of the chest Resp: Effort & Inspection: normal respiratory effort Cardio: Rate: regular rate Rhythm: regular rhythm GI: GI Palp: Yes Soft to palpation Percussion: Yes normal to percussion : General: Yes no CVA tenderness Urinary Catheter: Urinary Catheter: patent and draining Back/Spine/Pelvis: Back: no CVA tenderness Skin: General skin exam: normal color Rashes: no rashes Neuro: General: patient oriented x3 and moves all extremities Extrem: Other: Reproducible right-sided musculoskeletal chest pain with palpation with decreased range of motion of her right shoulder with active and passive movement with bicipital tenderness. Psych: Affect: normal affect Attitude: cooperative Course Course Emergency Course: Patient had EKG performed showed normal sinus rhythm was reviewed with patient, will give a dose of Toradol IM and after reassessment patient's symptoms have improved. Vital Signs Vital signs: Vital Signs Pulse Rate 84 08/27/21 22:11 Respiratory Rate 15 08/27/21 22:11 Pulse Oximetry 97 08/27/21 22:11 Temperature 36.8 C 08/27/21 22:12 Pulse
[2021-08-27 22:20] VITALS: PULSE 85; RESP 19; O2SAT 97
[2021-08-27] MEDS: KETOROLAC (*BKC) 60 MG/2 ML VIAL IM (22:26)
[2021-08-27 22:30] VITALS: PULSE 81; RESP 14; O2SAT 97
== END 2021-08-27 22:43 | disposition home or self-care (01) ==
PROVIDERS: Emergency Provider Emergency Medicine; PCP Physician Assistant
DX: R07.89 Other chest pain (principal)
CPT/HCPCS: 93005; 96372; 99283; J1885

== ENCOUNTER 2021-11-02 10:51 | Outpatient (CLI) | payer OTHER, SELFPAY ==
--- NOTE | ~2021-11-02 | XR_ITS ---
EXAMINATION: XR abdomen obstructive series DATE: 11/02/2021 11:21 INDICATION: Constipation TECHNIQUE: Upright and supine views of the abdomen were obtained. COMPARISON: None. FINDINGS: A moderate volume of colonic stool is present. There are no dilated loops of bowel. No free intraperitoneal gas is identified. Surgical clips in the right upper quadrant are likely from prior cholecystectomy. The visualized lung bases are clear. IMPRESSION: 1. Moderate volume of colonic stool. Reviewed, dictated and finalized at location A.
--- NOTE | ~2021-11-02 | XR_ITS ---
EXAMINATION: XR chest 1V INDICATION: Left chest pain TECHNIQUE: PA view of the chest is obtained. COMPARISON: 05/18/2020, 08/13/2019 FINDINGS: The lungs are free of acute opacities. No pleural effusion or pneumothorax. The cardiomedia stinal silhouette is normal. Surgical clips in the right upper quadrant are likely from prior cholecy stectomy. IMPRESSION: 1. No acute cardiopulmonary abnormality. Reviewed, dictated and finalized at location A.
== END 2021-11-02 10:52 | disposition home or self-care (01) ==
LOC: CHSIMG 10:53
PROVIDERS: PCP Family Medicine; Visit Provider Family Medicine
DX: K59.00 Constipation, unspecified (principal)
CPT/HCPCS: 71045; 74019

== ENCOUNTER 2021-12-08 08:37 | Outpatient (CLI) | payer OTHER, SELFPAY ==
--- NOTE | ~2021-12-08 | CT_ITS ---
EXAMINATION: CT abdomen pelvis w con DATE: 12/08/2021 09:06 INDICATION: Right lower quadrant abdominal pain. History of hysterectomy. TECHNIQUE: Computed tomography (CT) of the abdomen and pelvis was performed with 100 CC Omnipaque 350 intravenous contrast. Automated exposure control and iterative reconstruction technique were employe d. Exam dose: 310.53 mGy-cm total exam DLP. COMPARISON: 11/02/2021 obstructive series 08/24/2019 CT abdomen pelvis FINDINGS: The lung bases are clear of infiltrate or consolidation. Normal heart size. No pericardial or pleural effusion. Status post cholecystectomy. No hepatic, splenic, pancreatic, and adrenal or renal space-occupying ma ss lesion is noted, with the exception of a small stable lower pole left renal cyst. No bile duct or pancreatic duct dilatation. No urinary tract calculus or hydroureteronephrosis. The urinary bladder is unremarkable. Status post hysterectomy. Normal caliber of the abdominal aorta. No intraperitoneal or retroperitoneal or pelvic mass lesion or adenopathy or ascites. No evidence of appendicitis. There is a prominent amount of fecal material in the material in the col on but no bowel obstruction or intraperitoneal free air. Small fat-containing umbilical hernia. Included skeletal structures are unremarkable other than some posterior bulging disc at L4-5 and L5-S 1. No suspicious osteoblastic or osteolytic or sclerotic lesions. IMPRESSION: Status post cholecystectomy Status post hysterectomy No evidence of appendicitis Reviewed, dictated and finalized at Location A. Reviewed, dictated and finalized at location B.
== END 2021-12-08 08:38 | disposition home or self-care (01) ==
LOC: CHSIMG 08:40
PROVIDERS: PCP Physician Assistant; Visit Provider Registered Nurse
DX: R10.9 Unspecified abdominal pain (principal)
CPT/HCPCS: 74177; Q9967

== ENCOUNTER 2022-01-07 16:13 | Outpatient (CLI) | payer OTHER, SELFPAY ==
--- NOTE | ~2022-01-07 | XR_ITS ---
XR shoulder RT min 2V DATE: 01/07/2022 16:30 INDICATION: Right shoulder pain TECHNIQUE: 4 views COMPARISON: June 22, 2019 right shoulder FINDINGS: No fracture or dislocation, periosteal reaction or bone destruction or abnormal soft tissue calcification. Normal alignment at the acromioclavicular and glenohumeral joints. IMPRESSION: Negative Reviewed, dictated and finalized at location B. IMPRESSION: Negative
== END 2022-01-07 16:14 | disposition home or self-care (01) ==
LOC: CHSIMG 16:15
PROVIDERS: PCP Family Medicine; Visit Provider Physician Assistant
DX: M25.511 Pain in right shoulder (principal)
CPT/HCPCS: 73030

== ENCOUNTER 2022-01-14 09:56 | Outpatient (CLI) | payer OTHER, SELFPAY ==
--- NOTE | ~2022-01-14 | XR_ITS ---
EXAMINATION: XR hip LT min 2V DATE: 01/14/2022 11:04 INDICATION: Left hip/groin pain TECHNIQUE: Anteroposterior and frog-leg lateral views of the left hip were obtained. COMPARISON: CT abdomen and pelvis dated 12/08/2021 FINDINGS: Alignment is normal. No fracture or suspected avascular necrosis. Small sclerotic bone islands at the bilateral femoral heads. Left hip and sacroiliac joint spaces as well as the visualized portions of the right hip and sacroiliac joint spaces are normal. Small phlebolith in the right hemipelvis. IMPRESSION: 1. Negative left hip radiographs. Reviewed, dictated and finalized at location A.
== END 2022-01-14 09:57 | disposition home or self-care (01) ==
PROVIDERS: PCP Family Medicine; Visit Provider Physician Assistant
DX: M25.552 Pain in left hip (principal); M25.551 Pain in right hip
CPT/HCPCS: 73502

== ENCOUNTER 2023-02-07 22:34 | Emergency (ER) | payer OTHER, SELFPAY ==
--- NOTE | ~2023-02-07 | XR_ITS ---
EXAMINATION: XR chest 2V Exam Date/Time: 02/07/2023 22:48 CDT HISTORY: cough/fever/congestion x2 weeks Comparison: 11/02/2021. RESULT: Lines, tubes, and devices: None. Lungs and pleura: Subsegmental focus of airspace disease in the right lower lobe. Cardiomediastinal silhouette: Stable. Other: No acute osseous or upper abdominal finding. IMPRESSION: Subsegmental focus of right lower lobe airspace disease may represent atelectasis or the consolidatio n of pneumonia. Reviewed, dictated and finalized at location K. IMPRESSION: Subsegmental focus of right lower lobe airspace disease may represent atelectas is or the consolidation of pneumonia.
[2023-02-07 22:35] VITALS: BP 112/84; PULSE 87; RESP 18; TEMP 36.8; O2SAT 95
--- NOTE | 2023-02-07 22:41 | ED.URI ---
HPI - URI/Sore Throat General Chief Complaint: Upper Respiratory Infection Stated Complaint: Vomiting/fever/cough Time Seen by Provider: 02/07/23 22:41 Source: patient and RN notes reviewed Mode of arrival: ambulatory Limitations: no limitations History of Present Illness MD elicited complaint: fever (101) and cough Onset (ago): day(s) (10) Consistency: intermittent Severity: moderate Description of mucous: yellow Able to tolerate fluids by mouth: Yes Relieving factors: nothing Associated symptoms: fever, chills, myalgias, nausea and vomiting ( after coughing) Treatments prior to arrival: ibuprofen Related Data Home Medications Medication Instructions Recorded Confirmed naproxen 500 mg tablet 500 mg PO DAILY 08/27/21 02/07/23 trazodone 50 mg tablet 50 mg PO DAILY 08/27/21 02/07/23 clonazepam 1 mg tablet See Rx Instructions .Route .COMPLEX 02/07/23 02/07/23 famotidine 40 mg tablet 40 mg PO DAILY 02/07/23 02/07/23 fluoxetine 20 mg capsule 20 mg PO DAILY 02/07/23 02/07/23 Allergies Allergy/AdvReac Type Severity Reaction Status Date / Time morphine Allergy Severe Vomiting Verified 02/01/22 08:30 Penicillins Allergy Severe Hives Verified 02/01/22 08:30 tramadol Allergy Severe Seizure Verified 02/01/22 08:30 Review of Systems Review of Systems: All systems reviewed & are unremarkable except as noted in HPI and below PMFSH Past Medical History Medical History Carpal tunnel syndrome Cervical radiculopathy Depression Dyslipidemia GERD (gastroesophageal reflux disease) High cholesterol History of thyroid disease Rotator cuff impingement syndrome of right shoulder Surgical History Surgical History H/O partial thyroidectomy H/O: hysterectomy History of ankle surgery History of x2 Family History Family History Mother Family history of thyroid disease Other Cerebrovascular accident Diabetes mellitus Family history of allergic disorder Family history of arthritis Family history of malignant neoplasm Family history of mental disorder Hypertension Social History Social History Smoking packs per day: 2 Smoking cigarettes per day: 40.0 Smoking status: Current every day smoker Alcohol intake: never Substance use: never Living arrangements: with family Occupation/Education: occupation Additional occupation/education comments: [employer] Exam Const: General: no acute distress, alert and ill appearing acutely Nutritional Appearance: well nourished Orientation/consciousness: patient oriented x3 Limitations: no limitations HENMT: Head: normal to inspection Ears: external ears normal Face/Nose/Sinus: Normal external nose present Face and sinus: normal facial exam Mouth: Yes moist mucous membranes Eyes: Conjunctivae: conjunctivae normal Pupils: Equal, round and reactive pupils present EOM: EOMs intact bilaterally Neck: Neck: normal visual inspection Resp: Effort & Inspection: normal respiratory effort Auscultation: clear to auscultation bilaterally Cardio: Rate: regular rate Rhythm: regular rhythm GI: GI Palp: Yes Soft to palpation and No Tenderness to palpation present (GI) Auscultation: normal bowel sounds Back/Spine/Pelvis: Cervical Spine: cervical ROM normal Thoracic/Lumbar Spine: thoraco-lumbar ROM normal Skin: General skin exam: normal color Rashes: no rashes Neuro: General: patient oriented x3, moves all extremities, no focal motor deficits and CN's II-XI intact bilaterally Speech: normal speech Gait exam (Neuro): Normal gait present Extrem: General: normal to inspection and no clubbing, cyanosis or edema Psych: Mental Status: mental status grossly normal Affect: normal affect Attitude: cooperative Course Vital Signs Vital signs: Emilee
[2023-02-07 23:25] LABS: Basophils Absolute Auto 0.09 K/mm3 (0.00-0.10); Basophils Percent Auto 0.8 % (0.0-1.0); Eosinophils Absolute Auto 0.26 K/mm3 (0.02-0.50); Eosinophils Percent Auto 2.3 % (1.0-6.0); Hematocrit 36.5 % (35.0-49.0); Hemoglobin 11.8 g/dL (12.0-15.0); Immature Granulocyte Absolute 0.17 K/mm3 (0.00-0.00); Immature Granulocyte Percent A 1.5 % (0.0-0.0); Lymphocytes Absolute Auto 4.11 K/mm3 (1.10-4.50); Lymphocytes Percent Auto 36.9 % (18.0-42.0); Mean Corpuscular HGB Conc 32.3 g/dL (32.0-36.0); Mean Corpuscular Hemoglobin 28.4 pg (27.0-31.0); Mean Corpuscular Volume 87.7 fL (78.0-102.0); Mean Platelet Volume 8.8 fl (9.2-11.8); Monocytes Absolute Auto 0.94 K/mm3 (0.10-0.90); Monocytes Percent Auto 8.4 % (2.0-11.0); Neutrophils Absolute Auto 5.6 K/mm3 (1.7-7.2); Neutrophils Percent Auto 50.1 % (50.0-70.0); Platelet Count Result 434 K/mm3 (150-420); Red Blood Count 4.16 M/mm3 (4.20-5.40); Red Cell Distribution Width 13.2 % (11.6-14.4); White Blood Count 11.2 K/mm3 (4.8-10.8)
[2023-02-07 23:34] LABS: Influenza A QL RT-PCR Negative (Negative); Influenza B QL RT-PCR Negative (Negative); SARS-CoV-2 RNA PCR Negative (Negative)
[2023-02-07 23:50] LABS: Lactic Acid Reflex 1.7 mmol/L (0.4-2.0)
[2023-02-08] LABS: Alanine Aminotransferase 19 U/L (14-59); Albumin Level 2.9 g/dL (3.4-5.0); Alkaline Phosphatase 85 U/L (46-116); Anion Gap 8 mmol/L (8-16); Aspartate Amino Transferase 10 U/L (15-37); Bilirubin,Total 0.1 mg/dL (0.00-1.00); Blood Urea Nitrogen 14 mg/dL (7-18); CRP 0.7 mg/dL (0.0-0.9); Carbon Dioxide 28 mmol/L (21-32); Chloride 105 mmol/L (98-108); Estimated CRCL calculation 76 ml/min; Estimated Glomerular Filt Rate > 60; Glucose 119 mg/dL (70-99); Osmolality Calculated 293 mOsm/kg (285-295); Potassium 3.6 mmol/L (3.5-5.1); Sodium 141 mmol/L (136-145); Total Protein 6.4 g/dL (6.4-8.2)
[2023-02-08] MEDS: methylPREDNISolone SOD SUCC 125 MG VIAL IM (00:08)
[2023-02-08] MEDS: DOXYCYCLINE HYCLATE 100 MG TABLET PO (00:08)
[2023-02-08 00:14] VITALS: BP 129/88; PULSE 84; RESP 20; TEMP 37.2; O2SAT 94
--- NOTE | 2023-02-14 12:41 | PC.NURSE ---
FINAL BLOOD CULTURE REPORT, NO GROWTH AFTER 5 DAYS, NO FURTHER TREATMENT OR ACTION NEEDED.
== END 2023-02-08 00:21 | disposition home or self-care (01) ==
PROVIDERS: Emergency Provider Emergency Medicine; PCP Physician Assistant
DX: J18.9 Pneumonia, unspecified organism (principal); K21.9 Gastro-esophageal reflux disease without esophagitis; F32.A Depression, unspecified; F17.210 Nicotine dependence, cigarettes, uncomplicated; Z20.822 Contact with and (suspected) exposure to COVID-19
CPT/HCPCS: 36415; 71046; 80053; 83605; 85025; 86140; 87040; 87636; 96372; 99283; A9270; J2930

== ENCOUNTER 2023-11-30 12:32 | Emergency (ER) | payer OTHER, SELFPAY ==
[2023-11-30 12:33] VITALS: BP 129/88; PULSE 87; RESP 16; TEMP 36.1; O2SAT 98
--- NOTE | 2023-11-30 12:35 | ED.DENTAL ---
HPI - Dental/Oral General Chief complaint: Dental/Oral Stated complaint: dental pain Time Seen by Provider: 11/30/23 12:35 Source: patient Mode of arrival: ambulatory Limitations: no limitations History of Present Illness HPI Narrative: 48-year-old female, smoker a history of depression, dyslipidemia, dental caries presents to the ED with left lower jaw pain and swelling. No fever or chills. No trauma. MD Complaint: tooth pain Location: Tooth # (20) Onset (ago): day(s) ( Three days) Duration: constant Severity: severe Relieving factors: nothing Exacerbating factors: nothing Context: history of dental caries Treatment prior to arrival: none Related Data Home Medications Medication Instructions Recorded Confirmed naproxen 500 mg tablet 500 mg PO DAILY 08/27/21 02/07/23 trazodone 50 mg tablet 50 mg PO DAILY 08/27/21 02/07/23 clonazepam 1 mg tablet See Rx Instructions .Route .COMPLEX 02/07/23 02/07/23 famotidine 40 mg tablet 40 mg PO DAILY 02/07/23 02/07/23 fluoxetine 20 mg capsule 20 mg PO DAILY 02/07/23 02/07/23 Allergies Allergy/AdvReac Type Severity Reaction Status Date / Time morphine Allergy Severe Vomiting Verified 02/01/22 08:30 Penicillins Allergy Severe Hives Verified 02/01/22 08:30 tramadol Allergy Severe Seizure Verified 02/01/22 08:30 Review of Systems Review of Systems: All systems reviewed & are unremarkable except as noted in HPI and below Constitutional: Constitutional: Reports as per HPI and Reports no additional constitutional complaints Eyes: Eyes: Reports as per HPI and Reports no additional eye complaints ENT: Reports system reviewed and no additional complaints, except as documented and Reports as per HPI Comments: dental pain Cardiovascular: Cardiovascular: Reports as per HPI and Reports no additional cardiovascular complaints Respiratory: Respiratory: Reports as per HPI and Reports no additional respiratory complaints Gastrointestinal: Gastrointestinal: Reports as per HPI and Reports no additional gastrointestinal complaints Genitourinary: Genitourinary: Reports no additional female genitourinary complaints and Reports as per HPI Musculoskeletal: Musculoskeletal: Reports no additional musculoskeletal complaints and Reports as per HPI Integumentary/Breasts: Skin/Breast: Reports system reviewed and no additional complaints, except as docu and Reports as per HPI Neurologic: Reports system reviewed and no additional complaints, except as documented and Reports as per HPI Psychiatric: Psychiatric: Reports as per HPI, Reports anxiety and Reports depression Endocrine: Endocrine: Reports no additional endocrine complaints and Reports as per HPI Hematologic/Lymphatic: Hematologic/Lymphatic: Reports no additional hematologic/lymphatic complaints and Reports as per HPI Allergic/Immunologic: Allergic/Immunologic: Reports no additional allergic/immunologic complaints and Reports as per HPI [facility] Past Medical History Medical History Carpal tunnel syndrome Cervical radiculopathy Depression Dyslipidemia GERD (gastroesophageal reflux disease) High cholesterol History of thyroid disease Rotator cuff impingement syndrome of right shoulder Surgical History Surgical History H/O partial thyroidectomy H/O: hysterectomy History of ankle surgery History of x2 Family History Family History Mother Family history of thyroid disease Other Cerebrovascular accident Diabetes mellitus Family history of allergic disorder Family history of arthritis Family history of malignant neoplasm Family history of mental disorder Hypertension Social History Social History Smoking packs per day: 2 Smoking cigarettes per day: 40.0 Smoking status: Current every day
[2023-11-30] MEDS: HYDROcodone/acetaminophen (*CRX) 5-325 MG TABLET 1 TAB PO (12:50)
[2023-11-30 12:52] VITALS: BP 109/79; PULSE 76; RESP 20; O2SAT 97
== END 2023-11-30 12:52 | disposition home or self-care (01) ==
PROVIDERS: Emergency Provider Internal Medicine Critical Care Medicine; PCP Physician Assistant
DX: K04.7 Periapical abscess without sinus (principal); K02.9 Dental caries, unspecified; E78.5 Hyperlipidemia, unspecified; F17.210 Nicotine dependence, cigarettes, uncomplicated
CPT/HCPCS: 99283; A9270

== ENCOUNTER 2024-03-03 12:35 | Emergency (ER) | payer OTHER, SELFPAY ==
[2024-03-03 12:37] VITALS: BP 131/95; PULSE 103; RESP 18; TEMP 36.8; O2SAT 98
--- NOTE | 2024-03-03 13:01 | ECG_ITS ---
Test Date: 2024-03-03 13:14:16 Measurements Intervals [place] Rate: 85 P: 72 [place]: 143 QRS: 81 QRSD: 90 T: 53 QT: 383 QTc: 457 Interpretive Statements SINUS RHYTHM POSSIBLE RIGHT ATRIAL ENLARGEMENT [0.25mV P-WAVE] LEFT ATRIAL ENLARGEMENT [-0.15mV P-WAVE IN V1/V2] NONSPECIFIC T-WAVE ABNORMALITY ABNORMAL ECG No previous ECG available for comparison Electronically Signed On 03-03-2024 13:20:24 CDT by Pierre Gusman M.D.
--- NOTE | 2024-03-03 13:24 | ED.GENADULT ---
HPI - General Adult General Chief complaint: Unspecified Stated complaint: fatigue Time Seen by Provider: 03/03/24 13:01 Source: patient and family Mode of arrival: ambulatory Limitations: no limitations History of Present Illness HPI narrative: this is a 48-year-old female with history of bipolar disorder anxiety had an anxiety attack today had an episode where she fainted but patient has episodes like this in the past currently there is no headache no blurry vision no chest pain no shortness of breath no fever chills no nausea vomiting no abdominal pain. Patient has had an episode of anxiety did take her Klonopin prior to arrival to the ER patient is back to her baseline. Onset (ago): hour(s) Severity: mild Related Data Home Medications Medication Instructions Recorded Confirmed naproxen 500 mg tablet 500 mg PO DAILY 08/27/21 03/03/24 trazodone 50 mg tablet 50 mg PO DAILY 08/27/21 03/03/24 clonazepam 1 mg tablet See Rx Instructions .Route .COMPLEX 02/07/23 03/03/24 famotidine 40 mg tablet 40 mg PO DAILY 02/07/23 03/03/24 fluoxetine 20 mg capsule 20 mg PO DAILY 02/07/23 03/03/24 Allergies Allergy/AdvReac Type Severity Reaction Status Date / Time morphine Allergy Severe Vomiting Verified 03/03/24 13:11 tramadol Allergy Severe Seizure Verified 03/03/24 13:11 Review of Systems Review of Systems: All systems reviewed & are unremarkable except as noted in HPI and below PMFSH Past Medical History Medical History Carpal tunnel syndrome Cervical radiculopathy Depression Dyslipidemia GERD (gastroesophageal reflux disease) High cholesterol History of thyroid disease Rotator cuff impingement syndrome of right shoulder Surgical History Surgical History H/O partial thyroidectomy H/O: hysterectomy History of ankle surgery History of x2 Family History Family History Mother Family history of thyroid disease Other Cerebrovascular accident Diabetes mellitus Family history of allergic disorder Family history of arthritis Family history of malignant neoplasm Family history of mental disorder Hypertension Social History Social History Smoking packs per day: 2 Smoking cigarettes per day: 40.0 Smoking status: Current every day smoker Alcohol intake: never Substance use: never Living arrangements: with family Occupation/Education: occupation 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 Exam Const: General: cooperative, healthy appearing, comfortable, no acute distress and well developed Eyes: General: appearance normal, both eyes and all related structures Neck: Neck: normal visual inspection, full ROM and no lymphadenopathy Resp: Effort & Inspection: normal respiratory effort and able to speak in complete sentences Auscultation: clear to auscultation bilaterally Cardio: Jugular venous distension: no JVD Palpation: normal PMI Rate: regular rate Rhythm: regular rhythm Heart sounds: S1 normal heart sound present and S2 normal heart sound present GI: Inspection: normal to inspection : General: Yes bimanual renal exam normal bilaterally Skin: General skin exam: normal color and no rashes or lesions noted Neuro: General: oriented to person, oriented to place, oriented to time and patient oriented x3 Extrem: General: normal to inspection, full ROM and capillary refill normal Course Course Emergency Course: Patient with anxiety patient currently doing well back to her baseline EKG shows no acute abnormalities advised for her to take her clonazepam as needed and follow with her primary Vital Signs Vital signs: Vital Signs Temperature 36.8 C 03/03/24 12:37 Pulse Rate 103 H 03/03/24 12:37 Respiratory Rate 18 03/03/24 12:37 Blood Pressure 131/95 H 03/03/24 12:37 Pulse Oximetry 98 03/03/24 12:37 Oxygen Delivery Room Air 03/03/24 12:37 Temperature 36.8 C 03/03/24 12:37 Pulse Rate 103 H 03/03/24 12:37 Respiratory Rate 18 03/03/24 12:37 Blood Pressure 131/95 H 03/03/24 12:37 Pulse Oximetry 98 03/03/24 12:37 Oxygen Delivery Room Air 03/03/24 12:37 Medical Decision Making Vital Signs Vital Signs: Vital Signs Temperature 36.8 C 03/03/24 12:37 Pulse Rate 103 H 03/03/24 12:37 Respiratory Rate 18 03/03/24 12:37 Blood Pressure 131/95 H 03/03/24 12:37 Pulse Oximetry 98 03/03/24 12:37 Oxygen Delivery Room Air 03/03/24 12:37 Temperature 36.8 C 03/03/24 12:37 Pulse Rate 103 H 03/03/24 12:37 Respiratory Rate 18 03/03/24 12:37 Blood Pressure 131/95 H 03/03/24 12:37 Pulse Oximetry 98 03/03/24 12:37 Oxygen Delivery Room Air 03/03/24 12:37 Critical Care Time Critical Care Time Critical Care Time: No Discharge Plan Discharge Clinical Impression: Anxiety Patient Disposition: Home, Self-Care Condition: Stable Instructions: Antibiotic Form, Anxiety (ED) Additional Instructions: advised continue current medical regimen and follow with primary within next 3 to 4 days for further evaluation treatment. Prescriptions: No Action trazodone 50 mg tablet 50 mg PO DAILY naproxen 500 mg tablet 500 mg PO DAILY famotidine 40 mg tablet 40 mg PO DAILY clonazepam 1 mg tablet See Rx Instructions .ROUTE .COMPLEX Rx Instructions: 1/2 tab in Am and 1 tab at HS fluoxetine 20 mg capsule 20 mg PO DAILY Follow-up/Referrals: Eran,MD Omar [Primary Care Provider] - Time of Disposition: 13:28
== END 2024-03-03 13:39 | disposition home or self-care (01) ==
PROVIDERS: Emergency Provider Emergency Medicine; PCP Family Medicine
DX: F41.9 Anxiety disorder, unspecified (principal); F17.210 Nicotine dependence, cigarettes, uncomplicated; Z79.899 Other long term (current) drug therapy; Z79.1 Long term (current) use of non-steroidal anti-inflammatories (NSAID)
CPT/HCPCS: 93005; 99283

== ENCOUNTER 2024-11-16 15:47 | Emergency (ER) | payer OTHER, SELFPAY ==
--- NOTE | ~2024-11-16 | XR_ITS ---
XR elbow RT min 3V Ordering provider: Eric Santana MD History: . Rt. elbow pain post lifting injury, onset today . Comparison: None. FINDINGS: BONES: No acute fracture or dislocation. JOINT SPACES: Normal. SOFT TISSUES: Unremarkable. No definite joint effusion. IMPRESSION: No acute osseous abnormality of the right elbow. Reviewed, dictated and finalized at location A.
--- NOTE | 2024-11-16 15:49 | ED.UPPEXIN ---
HPI - Extremity Injury (Upper) General Chief Complaint: Extremity Injury, Upper Stated Complaint: Elbow Injury Time Seen by Provider: 11/16/24 15:48 Source: patient Mode of arrival: ambulatory Limitations: no limitations History of Present Illness HPI narrative: Patient is a 49-year-old female with a right elbow injury at home prior to arrival. She was working in the back of her truck and lifting the tailgate and hurt her elbow on the tailgate. She has had swelling of the right elbow since that time and pain shooting around the right elbow. No other injuries. MD complaint: injury to: right and elbow Onset (ago): minute(s) ( Thirty) Other injuries: none Place: home and outdoors Severity: moderate Severity scale (1-10): 5 Relieving factors: immobilization Exacerbating factors: movement of extremity Context: other ( patient sustained an injury to the right elbow while working outside near her truck and hitting her elbow on the truck tailgate) Associated symptoms: denies other symptoms Treatments prior to arrival: other ( none) Related Data Home Medications ?Medication ?Instructions ?Recorded ?Confirmed ?Last Taken ?Type naproxen 500 mg tablet 500 mg PO DAILY 08/27/21 03/03/24 Unknown History trazodone 50 mg tablet 50 mg PO DAILY 08/27/21 03/03/24 Unknown History clonazepam 1 mg tablet See Rx Instructions .Route .COMPLEX 02/07/23 03/03/24 Unknown History famotidine 40 mg tablet 40 mg PO DAILY 02/07/23 03/03/24 Unknown History fluoxetine 20 mg capsule 20 mg PO DAILY 02/07/23 03/03/24 Unknown History Allergies Allergy/AdvReac Type Severity Reaction Status Date / Time morphine Allergy Severe Vomiting Verified 03/03/24 13:11 tramadol Allergy Severe Seizure Verified 03/03/24 13:11 Review of Systems Review of Systems: All systems reviewed & are unremarkable except as noted in HPI and below Constitutional: Constitutional: Reports no additional constitutional complaints Eyes: Eyes: Reports no additional eye complaints ENT: Reports system reviewed and no additional complaints, except as documented Cardiovascular: Cardiovascular: Reports no additional cardiovascular complaints Respiratory: Respiratory: Reports no additional respiratory complaints Gastrointestinal: Gastrointestinal: Reports no additional gastrointestinal complaints Genitourinary: Genitourinary: Reports no additional female genitourinary complaints Musculoskeletal: Musculoskeletal: Reports no additional musculoskeletal complaints Integumentary/Breasts: Skin/Breast: Reports system reviewed and no additional complaints, except as docu Neurologic: Reports system reviewed and no additional complaints, except as documented Psychiatric: Psychiatric: Reports no additional psychiatric complaints Endocrine: Endocrine: Reports no additional endocrine complaints Hematologic/Lymphatic: Hematologic/Lymphatic: Reports no additional hematologic/lymphatic complaints Allergic/Immunologic: Allergic/Immunologic: Reports no additional allergic/immunologic complaints PMFSH Past Medical History Medical History Cervical radiculopathy Rotator cuff impingement syndrome of right shoulder Carpal tunnel syndrome High cholesterol GERD (gastroesophageal reflux disease) History of thyroid disease Depression Dyslipidemia Surgical History Surgical History History of x2 H/O partial thyroidectomy History of ankle surgery H/O: hysterectomy Family History Family History Mother Family history of thyroid disease Other Cerebrovascular accident Diabetes mellitus Family history of allergic disorder Family history of arthritis Family history of malignant neoplasm Family history of mental disorder Hypertension Social History Social History Smoking packs per day: 2 Smoking cigarettes per day: 40.0 Smoking status: Current every day smoker Alcohol intake: never Substance use: never Living arrangements: with family Occupation/Education: occupation 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 Exam Const: General: healthy appearing Nutritional Appearance: well nourished Orientation/consciousness: patient oriented x3 Limitations: no limitations HENMT: Head: normal to inspection Ears: external ears normal Face/Nose/Sinus: Normal external nose present Eyes: Conjunctivae: conjunctivae normal Pupils: Equal, round and reactive pupils present EOM: EOMs intact bilaterally Neck: Neck: normal visual inspection Chest: Chest palpation & inspection: normal inspection of the chest Resp: Effort & Inspection: normal respiratory effort and not labored Auscultation: clear to auscultation bilaterally and no crackles Cardio: Rate: regular rate Rhythm: regular rhythm Heart sounds: no murmurs GI: Inspection: non-distended GI Palp: Yes Soft to palpation and No Tenderness to palpation present (GI) Auscultation: normal bowel sounds : General: Yes bladder normal to palpation Skin: General skin exam: normal color Rashes: no rashes Wounds: no wounds Other: ecchymosis and swelling with erythema around the right elbow without signs of infection Neuro: General: patient oriented x3, moves all extremities, no meningeal signs, no focal motor deficits and CN's II-XI intact bilaterally Extrem: General: abnormal to inspection Other: right elbow has a pocket of fluid at the olecranon with a moderate sized bump with erythema and some localized ecchymosis with tenderness to palpation Psych: Mental Status: mental status grossly normal Affect: normal affect Attitude: cooperative Course Vital Signs Vital signs: Vital Signs Temperature 36.4 C 11/16/24 15:53 Pulse Rate 109 H 11/16/24 15:53 Respiratory Rate 22 H 11/16/24 15:53 Blood Pressure 132/99 H 11/16/24 15:53 Pulse Oximetry 98 11/16/24 15:53 Oxygen Delivery Room Air 11/16/24 15:53 Temperature 36.4 C 11/16/24 15:53 Pulse Rate 109 H 11/16/24 15:53 Respiratory Rate 22 H 11/16/24 15:53 Blood Pressure 132/99 H 11/16/24 15:53 Pulse Oximetry 98 11/16/24 15:53 Oxygen Delivery Room Air 11/16/24 15:53 MDM - Extremity Injury (Upper) MDM Narrative Medical decision making narrative: patient is a 49-year-old female with right elbow injury prior to arrival. We will get an x-ray. Pain control. patient is able to tolerate [place] without problem even though she has allergies to other opioids. Imaging Data Attestation: I personally reviewed and interpreted this imaging study as follows: Radiologist's impression: Right elbow x-ray is negative for acute process Discharge Plan Discharge Clinical Impression: Bursitis, olecranon Qualifiers: Laterality: right Qualified Code(s): M70.21 - Olecranon bursitis, right elbow Contusion of elbow Qualifiers: Encounter type: initial encounter Laterality: right Qualified Code(s): S50.01XA - Contusion of right elbow, initial encounter Patient Disposition: Home Condition: Stable Instructions: Elbow Bursitis (ED), Contusion in Adults (ED) Patient Language: Samoan Prescriptions: New hydrocodone-acetaminophen 5-325 mg tablet 1 tablet PO Q8H PRN (Reason: pain) Qty: 20 0RF No Action trazodone 50 mg tablet 50 mg PO DAILY naproxen 500 mg tablet 500 mg PO DAILY famotidine 40 mg tablet 40 mg PO DAILY clonazepam 1 mg tablet See Rx Instructions .ROUTE .COMPLEX Rx Instructions: 1/2 tab in Am and 1 tab at HS fluoxetine 20 mg capsule 20 mg PO DAILY Follow-up/Referrals: Eran,MD Omar [Non-Staff] - Time of Disposition: 16:44
--- OUTSIDE RECORDS SUMMARY | 2024-11-16 15:49 | XMS_ITS | Encounter Summary ---
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
--- OUTSIDE RECORDS SUMMARY | 2024-11-16 15:49 | XMS_ITS | Clinical Summary ---
Author Organization [facility] Address [address] [place] [address] Care Team Providers Care Agricultural Equipment Design Engineer Name Role Phone Unavailable Primary Care Provider Unavailabl e Source Comments [facility],non-owned Affiliates and Associated Physician Practices is amultiple site organization consisting of ambulatory clinics and hospital sitesin [place], [place], [place] and [place]. This disclosure is being madepursuant to the Care Everywhere program and may not contain all information available regarding this patient. Last updated 18.[facility] Allergies Active Allergy Reactions Criticality Noted Date Comments Morphine 04/30/2009 Penicillins 04/30/2009 Medications * Be aware that medications may not be up to date on this document. Alwaysverify current medications with the patient. est estrogens-methy ltest (ESTRATEST) 1.25-2.5 MG tablet Take 1 Tab by mouth daily. Active diazepam (VALIUM) 5 MG tablet Take 1 Tab by mouth nightly as needed for Anxiety. 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 Gender Identity Not on file Sexual Orientation Not on file Last Filed Vital Signs Vital Sign Reading Time Taken Comments Blood Pressure 116/80 08/02/2009 10:15 AM CDT Pulse 77 08/02/2009 8:00 AM CDT Temperature 36.8 C (98.2 F) 08/02/2009 8:00 AM CDT Respiratory Rate 16 08/02/2009 8:00 AM CDT Oxygen Saturation 100% 08/01/2009 2:52 PM CDT Inhaled Oxygen Concentration - - Weight 52.2 kg (115 lb) 08/01/2009 3:28 PM CDT Height 167.6 cm (5' 6) 08/01/2009 3:28 PM CDT Body Mass Index 18.56 08/01/2009 3:28 PM CDT Plan of Treatment Health Maintenance Due Date Last Done Comments COLOGUARD (AGES 45-75) - COL ON CA SCREENING 1977 COLON MONITORING 1977 COLONOSCOPY - COLON CA SCREENING 1977 CT COLONOGRAPHY - COLON CA SCREENING 1977 Colorectal Cancer Screening 1977 FIT - COLON CA SCREENING 1977 FLEX SIG - COLON CA SCREENING 1977 MAMMOGRAM 1977 HIV SCREENING 1992 HEPATITIS C SCREENING 03/09/1995 DTAP/TDAP/TD VACCINES (1 - Tdap) 1996 HEPATITIS B VACCINE (1 of 3 - 19+ 3-dose series) 1996 LIPID TESTING 08/02/2014 08/02/2009 COVID-19 VACCINE (1 - 2023-2 5 season) 2024 DEPRESSION SCREENING 05/09/2024 INFLUENZA VACCINE (#1) 2025 ZOSTER VACCINE (1 of 2) 2027 HIB VACCINE Aged Out No longer eligi ble based on patient's age to complete this topic HPV VACCINE Aged Out No longer eligi ble based on patient's age to complete this topic MENINGOCOCCAL (Group B) VACC INE SHARED DECISION-MAKING Aged Out No longer eligibl e based on patient's age to complete this topic MENINGOCOCCAL GROUPS A/C/Y/W VACCINE Aged Out No longer eligible b ased on patient's age to complete this topic PNEUMOCOCCAL VACCINE Aged Out No long er eligible based on patient's age to complete this topic Procedures Procedure Name Priority Date/Time Associated Diagnosis Comments LIPID PROFILE Routine 08/02/2009 6:22 AM CDT Gen Psychiatric Exam NEC from Last 3 Months or Most Recently Relevant to Health Maintenance Results * (ABNORMAL) LIPID PROFILE (08/02/2009 6:22 AM CDT) Cholesterol 147. SEE BELOW mg/dL [facility] Comment:120-200 Triglycerides 88. SEE BELOW mg/dL [facility] Comment:35-135 HDL Cholesterol 53.(L) SEE BELOW mg/dL [facility] Comment:>55 CAD* LDL Calculated 76 SEE BELOW mg/dL [facility] Comment: 70-130 <100 CAD* Cholesterol Risk Factor 1.25 SEE BELOW [facility] Comment: Average=1.0 <1.0=Less Risk >1.0=More Risk Comment Lipid [facility] Comment: CAD* In Coronary Artery Disease patients,including those with Ischemic Stroke, in whom nonpharmacological therapy has failed, the AHA recommends that drug therapy should be prescribed to lower the LDL cholesterol to <100mg/dl and may be instituted in patients with HDL <35mg/dl. BLOOD SPECIMEN / Unknown 08/02/2009 6:22 AM CDT 08/02/2009 6:29 AM CDT Narrative [facility] - 08/02/2009 6:50 AM CDT Female under 50 only. us Alin Kirk MD LAB - CHEMISTRY ORDERABLES F inal Result [facility] [address] [place] [address] from Last 3 Months or Most Recently Relevant to Health Maintenance Insurance [facility] Advance Directives * Full Code (Latest Code Status on File) Date Activated Date Inactivated Comments 08/01/2009 6:51 PM 08/03/2009 1:31 AM
--- OUTSIDE RECORDS SUMMARY | 2024-11-16 15:49 | XMS_ITS | Clinical Summary ---
Author Organization [facility] Address [address] [place] [id number] Care Team Providers Care Alarm Operator Name Role Phone Omar Barillas MD Primary Care Provider Social History Tobacco Use Types Packs/Day Years Used Date Smoking Tobacco: Never Assessed Comments Unknown Sex and Gender Information Value Date Recorded Sex Assigned at Not on file Legal Sex Female 9:45 PM SCHEDULE SUPERVISOR Gender Identity Not on file Sexual Orientation Not on file Last Filed Vital Signs Vital Sign Reading Time Taken Comments Blood Pressure 106/71 04/15/2017 10:28 AM SCHEDULE SUPERVISOR Pulse 87 04/15/2017 10:28 AM SCHEDULE SUPERVISOR Temperature - - Respiratory Rate - - Oxygen Saturation - - Inhaled Oxygen Concentration - - Weight 81 kg (178 lb 9.2 oz) 04/15/2017 10:28 AM SCHEDULE SUPERVISOR Height 165.1 cm (5' 5) 04/15/2017 10:28 AM SCHEDULE SUPERVISOR Body Mass Index 29.72 04/15/2017 10:28 AM SCHEDULE SUPERVISOR Plan of Treatment Health Maintenance Due Date Last Done Comments Cervical Cancer Screening Pa p Smear (Age 30 to 64) Every 3 Years 1977 Colorectal Cancer Screening Colonoscopy (10 Years) 1977 Annual Physical 1980 Hepatitis C 1995 DTaP, Tdap and Td Vaccines ( 1 - Tdap) 1996 Hepatitis B Vaccines (1 of 3 - 19+ 3-dose series) 1996 Cervical Cancer Screening Pa p with HPV Testing (Age 30 to 64) Every 5 Years 2007 Cervical Cancer Screening with HPV 2007 Mammogram Screening 2017 COVID-19 Vaccine (2023-2 5 season) 2024 Meningococcal B Vaccine Aged Out No l onger eligible based on patient's age to complete this topic Meningococcal Vaccine Aged Out No lula lindsey eligible based on patient's age to complete this topic Pneumococcal Vaccine: Pediat rics (0 to 5 Years) and At-Risk Patients (6 to 49 Years) Aged Out No longer eligible b ased on patient's age to complete this topic RSV Immunizations Under 20 Months Aged Out No longer eligible based on patient's age to complete this topic Insurance [employer] Care Teams Alarm Operator Relationship Specialty Start Date End Date Omar Barillas MD [address] [place] [phone] PCP - General FAMILY PRACTICE 03/22/19
--- OUTSIDE RECORDS SUMMARY | 2024-11-16 15:49 | XMS_ITS | Encounter Summary ---
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
[2024-11-16 15:53] VITALS: BP 132/99; PULSE 109; RESP 22; TEMP 36.4; O2SAT 98
--- OUTSIDE RECORDS SUMMARY | 2024-11-16 16:27 | XMS_ITS | Clinical Summary ---
Author Organization [facility] Address [address] [place] [address] Care Team Providers Care Water Gas Operator Name Role Phone Unavailable Primary Care Provider Unavailabl e Source Comments [facility],non-owned Affiliates and Associated Physician Practices is amultiple site organization consisting of ambulatory clinics and hospital sitesin [place], [place], [place] and [place]. This disclosure is being madepursuant to the Care Everywhere program and may not contain all information available regarding this patient. Last updated 18.[facility] Allergies Active Allergy Reactions Criticality Noted Date [...] on file Legal Sex Female 5:14 AM REGIONAL GEODETIC ADVISOR Gender Identity Not on file Sexual Orientation [...] LAB - CHEMISTRY ORDERABLES F inal Result [facility] [address] [place] [address] from Last 3 Months or Most Recently Relevant to Health Maintenance Insurance [facility] Advance Directives * Full Code (Latest Code Status on File) Date Activated Date Inactivated Comments 08/01/2009 6:51 PM 08/03/2009 1:31 AM
--- OUTSIDE RECORDS SUMMARY | 2024-11-16 16:27 | XMS_ITS | Encounter Summary ---
Author Organization [facility] Address [address] [place] [address] Care Team Providers Care Assistant Professor Of Dietetics Name Role Phone Bailey Wilks Primary Care Provider + Omar Barillas MD Primary Care Provider [phone] Encounter Details Date Type Department Care Team (Late st Contact Info) Description 07/23/2017 Abstract SJS CONVERSION [address] [place] [address] , Generic ConversionMD Social History Tobacco Use Types Packs/Day Years Used Date Smoking Tobacco: Never Assessed Comments Unknown Sex and Gender Information Value Date Recorded Sex Assigned at Not on file Legal Sex Female 9:45 PM ICT PROGRAMMER Gender Identity Not on file Sexual Orientation Not on file documented as of this encounter Plan of Treatment Not on file documented as of this encounter Visit Diagnoses Not on filedocumented in this encounter Care Teams Assistant Professor Of Dietetics Relationship Specialty Start Date End Date Bailey Wilks FNP [address] [place] [phone] PCP - General NURSE PRACTITIONER 11/02/18 03/21/19 Omar Barillas MD [address] [place] [phone] PCP - General FAMILY PRACTICE 03/22/19 documented as of this encounter
--- OUTSIDE RECORDS SUMMARY | 2024-11-16 16:27 | XMS_ITS | Clinical Summary ---
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 Gender Identity Not on file Sexual Orientation Not on file Last Filed Vital Signs Vital Sign [place] Time Taken Comments Blood Pressure 106/71 04/15/2017 10:28 AM ASSISTANT BOILER OPERATOR Pulse 87 04/15/2017 10:28 AM ASSISTANT BOILER OPERATOR Temperature - - Respiratory Rate - - Oxygen Saturation - - Inhaled Oxygen Concentration - - Weight 81 kg (178 lb 9.2 oz) 04/15/2017 10:28 AM ASSISTANT BOILER OPERATOR Height 165.1 cm (5' 5) 04/15/2017 10:28 AM ASSISTANT BOILER OPERATOR Body Mass Index 29.72 04/15/2017 10:28 AM ASSISTANT BOILER OPERATOR Plan of Treatment Health Maintenance Due Date [...] patient's age to complete this topic Insurance [employer] Care Teams Sales Trader Relationship Specialty Start Date End Date Omar Barillas MD [address] [place] [phone] PCP - General FAMILY PRACTICE 03/22/19
--- OUTSIDE RECORDS SUMMARY | 2024-11-16 16:27 | XMS_ITS | Encounter Summary ---
Author Organization [facility] Address [address] [place] [id number] Care Team Providers Care Dispute Resolution Analyst Name Role Phone Bailey Wilks Primary Care Provider + Omar Barillas MD Primary Care Provider Encounter Details Date Type Department Care Team (Late st Contact Info) Description 10/14/2018 Abstract [facility] CONVERSION [address] [place] [address] , Generic Conversion, Social History Tobacco Use Types Packs/Day Years Used Date Smoking Tobacco: Never Assessed Comments Unknown Sex and Gender Information Value Date Recorded Sex Assigned at Not on file 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
[2024-11-16 16:50] VITALS: BP 131/87; PULSE 95; RESP 18; O2SAT 97
== END 2024-11-16 16:56 | disposition home or self-care (01) ==
PROVIDERS: Emergency Provider Emergency Medicine; PCP Registered Nurse
DX: M70.21 Olecranon bursitis, right elbow (principal); S50.01XA Contusion of right elbow, initial encounter; F17.210 Nicotine dependence, cigarettes, uncomplicated; W22.09XA Striking against other stationary object, initial encounter
CPT/HCPCS: 73080; 99283

== ENCOUNTER 2025-03-02 19:10 | Emergency (ER) | payer OTHER, SELFPAY ==
--- NOTE | ~2025-03-02 | XR_ITS ---
EXAMINATION: XR chest 1V portable COMPARISON: No comparisons available. HISTORY: Cough and congestion FINDINGS: The lungs are clear, no effusion. No pneumothorax. Heart is normal size. Mediastinal and hilar contours are within normal limits. Bony thorax no acute abnormality. Miscellaneous: None Impression: No acute cardiopulmonary abnormality. Reviewed, dictated and finalized at location P. Impression: No acute cardiopulmonary abnormality.
[2025-03-02 19:12] VITALS: BP 129/85; PULSE 103; RESP 20; TEMP 36.4; O2SAT 100
--- OUTSIDE RECORDS SUMMARY | 2025-03-02 19:13 | XMS_ITS | Clinical Summary ---
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 Gender Identity Not on file Sexual Orientation Not on file Last Filed Vital Signs Vital Sign [place] Time Taken Comments Blood Pressure 106/71 04/15/2017 10:28 AM STORAGE MANAGEMENT ARCHITECT Pulse 87 04/15/2017 10:28 AM STORAGE MANAGEMENT ARCHITECT Temperature - - Respiratory Rate - - Oxygen Saturation - - Inhaled Oxygen Concentration - - Weight 81 kg (178 lb 9.2 oz) 04/15/2017 10:28 AM STORAGE MANAGEMENT ARCHITECT Height 165.1 cm (5' 5) 04/15/2017 10:28 AM STORAGE MANAGEMENT ARCHITECT Body Mass Index 29.72 04/15/2017 10:28 AM STORAGE MANAGEMENT ARCHITECT Plan of Treatment Health Maintenance Due Date [...] HPV 2007 Mammogram Screening 2017 COVID-19 Vaccine (2024-2 6 season) 2025 Influenza Adult (#1) 2025 Hepatitis A Vaccines Aged Out No long er eligible based on patient's age to complete this topic Meningococcal B Vaccine Aged Out No l [...] patient's age to complete this topic Insurance [employer] Care Teams Slitter Helper Relationship Specialty Start Date End Date Omar Barillas MD [address] [place] [phone] PCP - General FAMILY PRACTICE 03/22/19
--- OUTSIDE RECORDS SUMMARY | 2025-03-02 19:13 | XMS_ITS | Encounter Summary ---
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
--- OUTSIDE RECORDS SUMMARY | 2025-03-02 19:13 | XMS_ITS | Encounter Summary ---
Author Organization [facility] Address [address] [place] [address] Care Team Providers Care Insurance Sales Manager Name Role Phone Bailey Wilks Primary Care Provider + Omar Barillas MD Primary Care Provider Encounter Details Date Type Department Care Team (Late st Contact Info) Description 10/14/2018 Abstract [facility]FL CONVERSION [address] [place] [address] , Generic Conversion, Social History Tobacco Use Types Packs/Day Years Used Date Smoking Tobacco: Never Assessed Comments Unknown Sex and Gender Information Value Date Recorded Sex Assigned at Not on file Legal Sex Female 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
--- NOTE | 2025-03-02 19:23 | ED.URI ---
HPI - URI/Sore Throat General Chief Complaint: Upper Respiratory Infection Stated Complaint: flu Time Seen by Provider: 03/02/25 19:12 Source: patient Mode of arrival: ambulatory Limitations: no limitations History of Present Illness HPI Narrative: This is a 49-year-old female that presents with some cough congestion with currently no shortness of breath no audible wheezing no fever chills no nausea vomiting no chest pain or abdominal pain does have some nasal congestion and complains of a sore throat. MD elicited complaint: cough, sore throat and nasal congestion Onset (ago): day(s) Consistency: constant Severity: mild Description of mucous: clear and watery Related Data Home Medications ?Medication ?Instructions ?Recorded ?Confirmed ?Last Taken ?Type naproxen 500 mg tablet 500 mg PO DAILY 08/27/21 03/03/24 Unknown History trazodone 50 mg tablet 50 mg PO DAILY 08/27/21 03/03/24 Unknown History clonazepam 1 mg tablet See Rx Instructions .Route .COMPLEX 02/07/23 03/03/24 Unknown History famotidine 40 mg tablet 40 mg PO DAILY 02/07/23 03/03/24 Unknown History fluoxetine 20 mg capsule 20 mg PO DAILY 02/07/23 03/03/24 Unknown History Allergies Allergy/AdvReac Type Severity Reaction Status Date / Time morphine Allergy Severe Vomiting Verified 03/02/25 19:44 tramadol Allergy Severe Seizure Verified 03/02/25 19:44 Review of Systems Review of Systems: All systems reviewed & are unremarkable except as noted in HPI and below PMFSH Past Medical History Medical History Cervical radiculopathy Rotator cuff impingement syndrome of right shoulder Carpal tunnel syndrome High cholesterol GERD (gastroesophageal reflux disease) History of thyroid disease Depression Dyslipidemia Surgical History Surgical History History of x2 H/O partial thyroidectomy History of ankle surgery H/O: hysterectomy Family History Family History Mother Family history of thyroid disease Other Cerebrovascular accident Diabetes mellitus Family history of allergic disorder Family history of arthritis Family history of malignant neoplasm Family history of mental disorder Hypertension Social History Social History Smoking packs per day: 2 Smoking cigarettes per day: 40.0 Smoking status: Current every day smoker Alcohol intake: never Substance use: never Living arrangements: with family Occupation/Education: occupation 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 Exam Const: General: healthy appearing and no acute distress Nutritional Appearance: well nourished Orientation/consciousness: patient oriented x3 Limitations: no limitations HENMT: Head: normal to inspection Neck: Neck: normal visual inspection, no lymphadenopathy and no meningeal signs Chest: Chest palpation & inspection: normal inspection of the chest Resp: Effort & Inspection: normal respiratory effort Auscultation: clear to auscultation bilaterally Cardio: Rate: regular rate Rhythm: regular rhythm GI: GI Palp: Yes Soft to palpation Auscultation: normal bowel sounds : General: Yes bladder normal to palpation Back/Spine/Pelvis: Back: no CVA tenderness Skin: General skin exam: normal color Course Course Emergency Course: Medical decision making narrative: The patient was evaluated by myself in the emergency department. History obtained from patient was independent historian physical exam performed at with his plate years. Patient had a chest x-ray that showed no acute cardiopulmonary abnormalities COVID RSV influenza and strep performed reviewed with patient. Repeat assessment patient doing well repeated exam with no acute distress Repeat vitals are stable Patient agrees with discussion after shared medical decision-making and agrees with discharge. All questions answered to the patient's satisfaction. Follow-up with with primary care within 3 to 5 days Vital Signs Vital signs: Vital Signs Oxygen Delivery Room Air 03/02/25 19:10 Temperature 36.4 C L 03/02/25 19:12 Pulse Rate 72 03/02/25 20:25 Respiratory Rate 18 03/02/25 20:25 Blood Pressure 120/70 03/02/25 20:25 Pulse Oximetry 100 03/02/25 20:25 Oxygen Delivery Room Air 03/02/25 20:25 MDM - URI/Sore Throat Lab Data Labs: Lab Results 03/02/25 Range/Units 19:16 Influenza A (RT-PCR) Negative (Negative) Influenza B (RT-PCR) Negative (Negative) RSV (RT-PCR) Negative (Negative) SARS-CoV-2 RNA (RT-PCR) Negative (Negative) Group A Strep (PCR) Not detected (Negative) Critical Care Time Critical Care Time Critical Care Time: No Discharge Plan Discharge Clinical Impression: Upper respiratory infection Patient Disposition: Home Condition: Stable Instructions: Antibiotic Form, Upper Respiratory Infection (ED) Additional Instructions: Advised to take medication as prescribed and follow-up with primary care physician within next 3 to 5 days for further evaluation treatment. Patient Language: Bulgarian Prescriptions: New azithromycin [Zithromax Z-Issa] 250 mg tablet See Rx Instructions .ROUTE .COMPLEX Qty: 6 0RF Rx Instructions: For 250 mg dose pack: take 500 mg today (day 1), then 250 mg for 4 days (days 2-5) ProAir RespiClick 90 mcg/actuation aerosol powdr breath activated 2 inh inhalation QID PRN (Reason: shortness of breath) Qty: 1 0RF No Action trazodone 50 mg tablet 50 mg PO DAILY naproxen 500 mg tablet 500 mg PO DAILY famotidine 40 mg tablet 40 mg PO DAILY clonazepam 1 mg tablet See Rx Instructions .ROUTE .COMPLEX Rx Instructions: 1/2 tab in Am and 1 tab at HS fluoxetine 20 mg capsule 20 mg PO DAILY hydrocodone-acetaminophen 5-325 mg tablet 1 tablet PO Q8H PRN (Reason: pain) Qty: 20 0RF Follow-up/Referrals: Jneae,MUKESH Guzman [Primary Care Provider, Unknown] Time of Disposition: 20:16
[2025-03-02 19:56] LABS: Strep Group A RT-PCR NOT DETECTED (Negative)
[2025-03-02 20:10] LABS: Influenza A QL RT-PCR Negative (Negative); Influenza B QL RT-PCR Negative (Negative); RSV RNA, RT-PCR Negative (Negative); SARS-CoV-2 RNA PCR Negative (Negative)
[2025-03-02] MEDS: AZITHROMYCIN 250 MG TABLET 500 MG PO (20:20)
[2025-03-02 20:25] VITALS: BP 120/70; PULSE 72; RESP 18; O2SAT 100
== END 2025-03-02 20:25 | disposition home or self-care (01) ==
PROVIDERS: Emergency Provider Emergency Medicine; PCP Registered Nurse
DX: J06.9 Acute upper respiratory infection, unspecified (principal); E78.5 Hyperlipidemia, unspecified; F17.210 Nicotine dependence, cigarettes, uncomplicated; Z79.1 Long term (current) use of non-steroidal anti-inflammatories (NSAID); Z20.822 Contact with and (suspected) exposure to COVID-19
CPT/HCPCS: 71045; 87637; 87651; 99283; A9270